=== PATIENT | male | born 1935 | race Caucasian/White ===

== ENCOUNTER 2017-10-04 00:36 | Inpatient (IN) | payer MEDICARE, MEDICAID ==
[2017-10-04 01:13] LABS: #Monocytes 0.8 thou/uL (0.11-0.59); #Neutrophils 11.2 thou/uL (1.40-6.50); %Basophils 0.2 % (0.0-1.0); %Eosinophils 0.2 % (0.0-10.0); %Lymphocytes 7.9 % (21.0-51.0); %Neutrophils 85.8 % (42.0-75.0); Hemoglobin 14.2 g/dL (14.0-18.0); Mean Corpuscular HGB CONC 33.3 g/dL (32.0-36.0); Mean Corpuscular Hemoglobin 30.6 pg (27.0-31.0); Mean Corpuscular Volume 91.7 fl (80.0-94.0); Mean Platelet Volume 6.3 fL (7.4-10.4); Platelet Count 209 thou/uL (130-400); Red Blood Cell (RBC) Count 4.65 mill/uL (4.70-6.10)
[2017-10-04 01:13] LABS: Bilirubin Negative (Negative); Blood, Urine Large (Negative); Clarity CLOUDY (Clear); Glucose, Urine (Dipstick) Negative (Negative); Leukocyte Large (Negative); Nitrite Positive (Negative); Protein, Urine (Dipstick) 100 mg/dL (Neg-Trace); Specific Gravity, Urine 1.016 (1.002-1.036); pH, Urine 7.5 (5.0-9.0)
[2017-10-04 01:15] LABS: Bacteria/HPF 4+ HPF (None Seen); Hyaline Casts/LPF 0-3 HYALINE CAST LPF (0-3 Hyaline); RBC/HPF GREATER THAN 50-TNTC HPF (0-3); Squamous Epithelial None Seen HPF (0-3)
[2017-10-04 01:26] LABS: CO2 Tension 31.7 mmHg (35.0-45.0); Hematocrit-ABG 41.8 % (42.0-52.0); pH, Arterial 7.46 (7.35-7.45)
[2017-10-04 01:27] LABS: ALV-art Gradient 63.875 (0-20); Analyzer IN Cardio ER; Puncture Site LRA
[2017-10-04 01:34] LABS: ALT (SGPT) Less than 7 U/L (8-55); AST (SGOT) 9 U/L (5-34); Albumin 3.6 g/dL (3.4-4.8); Alkaline Phosphatase 90 U/L (40-150); Anion Gap 11 mmol/L (10-20); BUN (Urea Nitrogen) 12 mg/dL (8.4-25.7); Bilirubin, Total 1.5 mg/dL (0.2-1.2); Calc. Creatinine Clearance 0 mL/min (70-130); Calcium 8.1 mg/dL (7.8-10.44); Carbon Dioxide 27 mmol/L (23-31); Chloride 101 mmol/L (98-107); Estimated GFR-MDRD 67; Glucose 104 mg/dL (83-110); Protein, Total 6.6 g/dL (5.8-8.1); Sodium 135 mmol/L (136-145)
[2017-10-04] MEDS ORDERED: Piperacillin/Tazobactam 4.5 GM in Sodium Chloride 0.9% 100 ML IVPB SCH (02:00)
[2017-10-04] MEDS ORDERED: Vancomycin HCl 1.25 GM in Sodium Chloride 0.9% 250 ML 250 ML IVPB SCH (02:00)
[2017-10-04] MEDS ORDERED: Sodium Chloride 0.9% 1,000 ML IV SCH (03:39)
[2017-10-04] MEDS ORDERED: Ondansetron ODT 4 MG TAB SL PRN (03:39)
[2017-10-04] MEDS ORDERED: Acetaminophen 325 MG TAB PO PRN (03:39)
[2017-10-04] MEDS ORDERED: Ondansetron HCl/PF 4 MG/2 ML Vial IVP PRN (03:39)
[2017-10-04 03:58] VITALS: BMI 29.3
--- NOTE | 2017-10-04 03:58 | PDOC.FPRHP ---
- History of Present Illness Chief Complaint: Shortness of breath, fever History of Present Illness: 82 year old male with past medical history of lung cancer (unspecified type) that presents with shortness of breath and fever. Per EMS report, called because patient was having difficulty breathing. He has a known lung cancer history and complete laryngectomy. Patient is unable to talk, but can answer yes or no questions appropriately. Over the past few days, he has become progressively short of breath and developed a cough. He is on oxygen 3L at home , and his O2 requirement has gone up during the course of this illness. Patient reports that he had a measured temperature at home greater than 100.4. He denies body aches, headaches, sore throat or chest pain. He denies a previous diagnosis of CHF and cannot reliably recall if he has ever been diagnosed with COPD, although he does endorse a smoking history in the past. Patient endorses right hip pain, but denies any recent trauma. He states that he has bronchitis. Sick contacts at home include with cough and congestion. Additionally, patient was seen a week ago and treated for bronchitis. He has a history of recurrent pneumonia, but states he has not been hospitalized in the last several months. Patient mostly answers to yes/no questions as he is unable to talk. ED Course: Patient given 2L NS in ED. He had a SBP measured in the 80's that responded to one liter of NS. He was given 750 mg levofloxacin in the ED as well as a duoneb treatment. - Allergies/Adverse Reactions Allergies Allergy/AdvReac Type Severity Reaction Status Date / Time No Known Allergies Allergy Verified 10/04/17 03:56 - Home Medications Medication Instructions Recorded Confirmed Type Carvedilol [Coreg] 6.25 mg PO BID 10/04/17 10/04/17 History Esomeprazole Magnesium [NexIUM] 40 mg PO QAM-WM 10/04/17 10/04/17 History Furosemide [Lasix] 40 mg PO BID 10/04/17 10/04/17 History Levothyroxine Sodium [Synthroid] 137 mcg PO DAILY 10/04/17 10/04/17 History Warfarin Sodium [Coumadin] 3 mg PO DAILY@1700 10/04/17 10/04/17 History traMADol HCl/Acetaminophen 1 each PO QID 10/04/17 10/04/17 History [Tramadol-Acetaminophn 37.5-325] Levofloxacin [Levaquin] 750 mg PO 0600 #1 tab 10/07/17 Rx Oseltamivir [Tamiflu] 75 mg PO BID #5 cap 10/07/17 Rx predniSONE 40 mg PO QAM-WM #3 tab 10/07/17 Rx - History PMHx: Hx of lung cancer (unspecified type) PSHx: Complete laryngectomy and resection of LLL of lung 1 year ago FHx: Noncontributory Social: Patient lives at home with his who has dementia. He endorses a past smoking history. No history of drug use. Unable to reliably obtain history. Patient's daughter is on her way with documentation to update PMH and medications. - Review of Systems General: reports: fever/chills. denies: weight/appetite/sleep changes ENT: denies: nasal congestion, rhinorrhea Respiratory: reports: cough, congestion, shortness of breath, exercise intolerance Cardiovascular: denies: chest pain, edema, orthopnea Gastrointestinal: denies: nausea, vomiting, diarrhea, constipation Genitourinary: reports: other (Chronic indwelling catheter). denies: dysuria Skin: denies: rashes Musculoskeletal: reports: pain (Right hip pain (arthritis)), arthritis/ arthralgias (Right hip) Neurological: denies: syncope Psychological: reports: anxiety - Vital signs BP: 123/63 HR: 104 RR: 22 Tmax: 101.8 Pox: 99% on 4L Wt: 95.5 kg - Physical Exam Constitutional: NAD, awake, alert and oriented HEENT: normocephalic and atraumatic, EOMI, no scleral icterus Neck: supple Heart: RRR, no murmurs/rubs/gallops, pulses present, no edema -Lungs: Wheezing diffusely throughout. Crackles in LLL. Decreased breath sounds on right. Abdomen: soft, non-tender, bowel sounds present, no masses/distention Musculoskeletal: normal structure Neurological: no focal deficit Skin: no rash/lesions, capillary refill <2 seconds Heme/Lymphatic: no purpura, no petechia Psychiatric: normal mood and affect FMR H&P: Results - Labs Result Diagrams: 10/07/17 04:42 10/07/17 04:42 Lab results: WBC 13.0 thou/uL (4.8-10.8) H 10/04/17 00:55 Hgb 14.2 g/dL (14.0-18.0) 10/04/17 00:55 Hct 42.7 % (42.0-52.0) 10/04/17 00:55 MCV 91.7 fl (80.0-94.0) 10/04/17 00:55 Plt Count 209 thou/uL (130-400) 10/04/17 00:55 Neutrophils % 85.8 % (42.0-75.0) H 10/04/17 00:55 ABG pH 7.46 (7.35-7.45) H 10/04/17 01:20 ABG pCO2 31.7 mmHg (35.0-45.0) L 10/04/17 01:20 ABG pO2 253.0 mmHg (80.0-100.0) H 10/04/17 01:20 Sodium 135 mmol/L (136-145) L 10/04/17 00:55 Potassium 4.0 mmol/L (3.5-5.1) 10/04/17 00:55 Chloride 101 mmol/L (98-107) 10/04/17 00:55 Carbon Dioxide 27 mmol/L (23-31) 10/04/17 00:55 BUN 12 mg/dL (8.4-25.7) 10/04/17 00:55 Creatinine 1.06 mg/dL (0.6-1.3) 10/04/17 00:55 Glucose 104 mg/dL (83-110) 10/04/17 00:55 Lactic Acid 2.1 mmol/L (0.5-2.2) 10/04/17 00:55 Calcium 8.1 mg/dL (7.8-10.44) 10/04/17 00:55 Total Bilirubin 1.5 mg/dL (0.2-1.2) H 10/04/17 00:55 AST 9 U/L (5-34) 10/04/17 00:55 ALT Less than 7 U/L (8-55) L 10/04/17 00:55 Alkaline Phosphatase 90 U/L (40-150) 10/04/17 00:55 Serum Total Protein 6.6 g/dL (5.8-8.1) 10/04/17 00:55 Albumin 3.6 g/dL (3.4-4.8) 10/04/17 00:55 Urine Ketones Negative mg/dL (Negative) 10/04/17 00:42 Urine Blood Large (Negative) H 10/04/17 00:42 Urine Nitrite Positive (Negative) H 10/04/17 00:42 Ur Leukocyte Esterase Large (Negative) H 10/04/17 00:42 Urine RBC GREATER THAN 50-TNTC HPF (0-3) H 10/04/17 00:42 Urine WBC Greater Than 50-TNTC HPF (0-3) H 10/04/17 00:42 Ur Squamous Epith Cells None Seen HPF (0-3) 10/04/17 00:42 Urine Bacteria 4+ HPF (None Seen) H 10/04/17 00:42 - Radiology Interpretation Chest x-ray Status: image reviewed by me, report reviewed by me FMR H&P: A/P - Problem List (1) Sepsis Current Visit: Yes Status: Acute Code(s): A41.9 - SEPSIS, UNSPECIFIED ORGANISM (2) Community acquired pneumonia Current Visit: Yes Status: Acute Code(s): J18.9 - PNEUMONIA, UNSPECIFIED ORGANISM (3) COPD exacerbation Current Visit: Yes Status: Acute Code(s): J44.1 - CHRONIC OBSTRUCTIVE PULMONARY DISEASE W (ACUTE) EXACERBATION (4) History of lung cancer Current Visit: Yes Status: Chronic Code(s): Z85.118 - PERSONAL HISTORY OF MALIGNANT NEOPLASM OF BRONCHUS AND LUNG (5) S/P laryngectomy Current Visit: Yes Status: Chronic (6) UTI (urinary tract infection) Current Visit: Yes Status: Acute Qualifiers: Urinary tract infection type: catheter-associated UTI Indwelling urinary catheter type: indwelling urethral catheter Encounter type: initial encounter Qualified Code(s): T83.511A - Infection and inflammatory reaction due to indwelling urethral catheter, initial encounter; N39.0 - Urinary tract infection , site not specified; N39.0 - Urinary tract infection, site not specified (7) Chronic indwelling Carmona catheter Current Visit: Yes Status: Chronic Code(s): Z92.89 - PERSONAL HISTORY OF OTHER MEDICAL TREATMENT - Plan 1. Sepsis 2/2 presumed atypical CAP vs. acute on chronic tracheobronchitis - LA elevated at 2.1, repeat pending - New onset cough, fever, and SOB - Sick contacts at home - NS @ 125 ml/hr - Continue treatment with levoquin 750 mg per 24 hours - May be able to transfer to floor later today if patient continues to be stable - Titrate O2 as tolerated. Patient normally on 3 L at home. Currently requiring 4 L - Continue steroids and duonebs - Initial CXR showed possible left lung infiltrates. Repeat recommended if not improving - Patient refusing suctioning and humidified air 2. UTI vs. asymptomatic bacteriuria/colonization - patient with chronic indwellling carmona catheter for uknown reason. Will try to get better history once patient's family arrives - May need catheter replacement; unsure how long catheter has been in place 3. History of lung cancer - Records pending at this time. Will have better idea of PMH and surgical history once patient's family arrives. 4. S/p laryngectomy - RT for assistance with trach care - Patient currently with stoma Disposition/LOS: Admit to IMCU. Continue treatment with levoquin for CAP, possible UTI, and COPD exacerbation. FMR H&P: Upper Level - Plan Date/Time: 10/04/17351 IEddie, have evaluated this patient and agree with findings/plan as outlined by strategy intern resident. Pertinent changes/additions are listed here. 82 y/o M pmhx lung Ca s/p lung resection and complete laryngectomy presents to via EMS w/ progressively worsening dyspnea and fever x several days. Unfortunately, the patient is unable to talk, but can answer yes or no questions appropriately. Pt on 3L O2 at baseline with increasing O2 requirement over the past day or two. No associated body aches, headaches, sore throat, chest pain, or congestion. Denies any new urinary symptoms; does have a chronic indwelling catheter for issues with retention. Pt is a prior smoker but is unsure whether or not he carries a diagnosis of COPD. Apparently, patient was seen a week ago and treated for bronchitis but it is unclear with what medication. He has a history of recurrent pneumonia but has not been hospitalized in the last several months. The patient has never been seen before at this facility and indicates that he usually goes to different hospital that recently shut down. His family members are supposed to be bringing a full list of his medical problems and medications later this morning. PE: Gen: AAOx3, NAD ENT: Trachestomy tube present O2 mask in place CV: RRR, no m/g/r Lungs: diffuse wheezing; adventitious breath sounds LLL A/P: 1) Sepsis 2/2 #2, resolving: Pt initially admitted to IMCU due to initial VS instability in the context of his age and comorbidties. Lactic acid increasing slightly - cont IVF and abx and recheck in 4hrs. Initial ABG ok. Blood and urine cultures pending. Clinical condition currently stable after fluid boluses. May be able to transfer to floor later today. 2) Acute on chronic tracheobronchitis v. LLL CAP: continue Levaquin. Titrate O2 as required. Continue steroids and neb treatments. Initial CXR poor quality, obtain r/p if not improving as expected. 3) UTI v. asymptomatic bacteriuria/colonization: Urine less likely source of infection but levaquin should cover while culture pending. May need catheter replacement. 4) H/o lung CA: records pending 5) S/p laryngectomy: RT for assistance with trach care Attending Addendum - Attending Addendum Date/Time: 10/07/17 1015 I personally evaluated the patient and discussed the management with Dr. Rousseau and Dr. Quinn at time of exam. Previous addendum added but no longer present within documentation. I agree with the History, Examination, Assessment and Plan documented above with any addition or exceptions noted below. 82 yo male with history of lung cancer s/p surg/treatment presents with sepsis 2 /2 pulmonary source. Stable in IMCU at present. Continue plan as stated above. Monitor closely. Trend labs. Discuss case with urology. Flu negative. Lori
[2017-10-04] MEDS ORDERED: Enoxaparin Sodium 40 MG/0.4 ML SYRINGE SC SCH (04:00)
[2017-10-04] MEDS ORDERED: Albuterol Sulfate 1.25 MG/3 ML NEB IPPB PRN (05:00)
[2017-10-04] MEDS: Sodium Chloride 0.9% 1,000 ML IV SCH ×3 (05:26→21:24)
[2017-10-04 05:37] LABS: Lactic Acid 2.4 mmol/L (0.5-2.2)
[2017-10-04 05:54] LABS: CKMB 0.9 ng/mL (0-6.6); Troponin I Less than 0.010 ng/mL (< 0.028)
--- NOTE | 2017-10-04 07:43 | RAD ---
SINGLE VIEW CHEST: Date: 10/04/17 COMPARISON: None. HISTORY: Shortness of breath with fever and chest pain. FINDINGS: Single view of the chest shows a cardiomediastinal silhouette which is upper limits of normal in size with atherosclerotic calcifications in the aorta. There is no evidence of consolidation, mass, or pl eural effusion. Degenerative changes are seen in the spine. IMPRESSION: No evidence of acute cardiopulmonary disease. POS: OFF
[2017-10-04] MEDS: predniSONE 20 MG TAB PO SCH (09:22)
[2017-10-04 09:41] LABS: INR-International Normal Ratio 1.9; PTT 55.9 SEC (22.9-36.1); Prothrombin Time 22.8 SEC (12.0-14.7)
--- NOTE | 2017-10-04 12:28 | PQF ---
CLINICAL DOCUMENTATION IMPROVEMENT CLARIFICATION FORM: ICD-10 Updated PLEASE DO AN ADDENDUM TO THE PROGRESS NOTE WITH ANY DOCUMENTATION UPDATES OR ADDITIONS AND CARRY THROUGH TO DC SUMMARY. THANK YOU. DATE: 10/04/17 ATTN: DR. RAMIREZ Please exercise your independent, professional judgment in responding to the clarification form. Clinical indicators are provided on the bottom of this form for your review Please check appropriate box(s): [ ] Acute Respiratory Failure: [ ] with Hypoxia[ ] with Hypercapnia [ x] Acute On Chronic Respiratory Failure: [x ] with Hypoxia [ ] with Hypercapnia [ ] Acute Respiratory Failure due to: (etiology) [ ] Acute Respiratory Insufficiency following (if applicable): [ ] trauma [ ] surgery [ ] Chronic Respiratory Failure only [ ] with Hypoxia [ ] with Hypercapnia [ ] Other diagnosis [ ] Unable to determine In addition, please specify: Present on Admission (POA): [ x ] Yes [ ] No [ ] Unable to determine For continuity of documentation, please document condition throughout progress notes and discharge summary. Thank You. CLINICAL INDICATORS - SIGNS / SYMPTOMS / LABS H&P 10/04: "HE IS ON OXYGEN 3L AT HOME, AND HIS O2 REQUIREMENT HAS GONE UP DURING THE COURSE OF THIS ILLNESS." RR 32 RISKS: COPD H/O LUNG AND VOCAL CORD CA PNEUMONIA TRACH TREATMENT: SUPPLEMENTAL OXYGEN PULMONARY CONSULT DUONEBS PREDNISONE (This form is maintained as a part of the permanent medical record) 2014 [employer]. All Rights Reserved [email or web address] Office: [phone] [facility]PITAL[facility]oon
--- NOTE | 2017-10-04 13:45 | CON ---
DATE OF CONSULTATION: 10/04/2017 CONSULTING PHYSICIAN: [facility]. REASON FOR CONSULTATION: IMCU placement. HISTORY OF THE PRESENT ILLNESS: History is obtained by reading the chart and also speaking with the patient's family. The patient is unable to talk secondary to laryngectomy. He is an 82-year-old male who has a history of lung cancer and head and neck cancer. He recently und erwent partial left lung resection along with a complete laryngectomy. He ordinarily does well at [facility], but does have to wear supplemental oxygen. He came in last night with increasing fever and weakn ess. He lives in [place] and ordinarily has received care at [facility]. Apparently, the hospital over in [place] has closed recently and we may be the closest facility to them. He was found on wo rkup to have a fairly significant urinary tract infection and is receiving antibiotics and is doing m uch better. He has not required anything in the way of mechanical ventilation. PAST MEDICAL HISTORY: 1. Lung cancer. 2. Head and neck cancer. 3. Probable underlying chronic obstructive pulmonary disease. PAST SURGICAL HISTORY: 1. Partial left lung resection - I do not have operative notes to substantiate what exactly was karissa kayode. 2. Complete laryngectomy. FAMILY MEDICAL HISTORY: Unremarkable for lung disease. SOCIAL HISTORY: Smoked heavily in the past. He does not smoke currently. Lives at home with his wi fe in [place]. Does not use illicit drugs. Does not drink alcohol. MEDICATIONS PRIOR TO ADMISSION: None listed on the chart. CURRENT INPATIENT MEDICATIONS: Levaquin, prednisone and DuoNeb. OUTPATIENT MEDICATIONS: They are listed as follows. Esomeprazole 40 mg daily; Lasix 40 mg twice shirley ly; warfarin 3 mg every Saturday, Saturday and Saturday and a half of 3 mg tablet on Saturday, Saturday a saturday; Coreg 6.25 mg b.i.d.; Synthroid 137 mcg daily; tramadol 4 times daily for pain and he had been taking doxycycline 100 mg b.i.d. for unknown time. REVIEW OF SYSTEMS: A 12-point review of systems otherwise negative. PHYSICAL EXAMINATION: VITAL SIGNS: Temperature 99.4, pulse 111, respirations 22 and O2 sat 100% on trach collar. GENERAL: He is awake and alert and in no distress. He is not hypotensive and is not requiring vasop ressors. HEENT: Pupils react. Sclerae anicteric. Oropharynx clear. NECK: A well healed laryngectomy scar. The patient cannot talk. CARDIOVASCULAR: S1 and S2, slightly tachycardic without murmur. LUNGS: Clear without wheezing or rhonchi. ABDOMEN: Soft, nontender and nondistended. EXTREMITIES: No clubbing or cyanosis. He has some stasis changes over his lower extremities. X-RAY FINDINGS: His chest x-ray demonstrates increased markings over the left lung. We do not have any old x-ray to compare. LABORATORY DATA: PH 7.46, pCO2 of 31 and pO2 of 253. White blood cell count 13, hematocrit 42 and p latelet count 209. INR 1.9. Sodium 135, potassium 4, chloride 101, CO2 of 27, BUN 12, creatinine 1. 0, glucose 104 and lactate 2.4. BNP 125. ASSESSMENT: 1. Urinary tract infection/urosepsis. 2. Previous history of lung cancer and head and neck cancer. 3. Status post laryngectomy. PLAN: I agree with antibiotics, fluids needed. The above encompassed 70 minutes time spent with the patient. Greater than 50% of the time was spent with the patient and/or on the patient's unit.
--- NOTE | 2017-10-04 14:20 | CON ---
DATE OF CONSULTATION: 10/04/2017 This patient was admitted last night through the emergency room here. I think he came here recently and probably was transferred here from [place], I believe he is in [place] and he has been g etting his care over in [place] with Dr. Mclaughlin is his family doctor there. He came in with worsenin g shortness of breath. He felt to have pneumonia. He has had laryngectomy, he has also had a lobect noel, both for cancer. I do not think there is any of those records here, who did those surgeries has been caring form in that regard. I have been asked to see him because his bladder has been maintain ed with an indwelling catheter, his believes for 8 years, exchange [facility]. He is probably not seen an urologist for a number of years. He has had some erosion that was noted by the nursing staff from the [facility]. I talked with the , she does not believe he has h ad any history of prostate surgery, prostate cancer, kidney stones, or bladder stones. His white cou nt is elevated at 13. His creatinine is normal at 1.06. Urine which I believe was taken from the in dwelling catheter bag showed many red cells, white cells and 4+ bacteria. I believed his catheter wa s last changed just a few days ago by home health. He has had tests for the flu that come back negat ben, I believe he has had blood and urine cultures were done, but they are still pending on the compu ter. He is still tachycardic with a temperature of around 99 with slight blood pressure has been fin e, appears that he has had good urine output looking at his bag. PHYSICAL EXAMINATION: His abdomen is soft and nontender, without mass. Bladder is not distended. P millie is not circumcised. There is no phimosis. Foreskin easily retracts. He has got some erosion o f the ventral meatus down past the glans and the julian and just to the distal shaft of the ventral a spect. There is no perineal mass or fluctuance or tenderness. Testicles are descended without mass or tenderness. Rectal exam was not done. IMPRESSION: Long-term Kay catheter placement changed monthly by home health nurses and is uncertai n why this was placed, although it is probably placed because he could not urinate, but there is no w ay to know why was he could not urinate. He got some erosion from this. If he clears up from his cu rrent medical condition and his health improves, we could consider changing over to a suprapubic tube . I do not know who Dr. Mclaughlin is, that is his regular family doctor in [place] and I do not know if Dr. Mclaughlin uses a urologist there. Apparently the patient has seen a urologist a number of years ago and his option is to return to that urologist, the suprapubic tube could be placed by him, however, that is not possible and the family was desiring that, we could look at doing a suprapubic tube in 2- 3 weeks once he has recovered from this event. I will follow along distantly while he is here and we will check his cultures as they return.
[2017-10-04] MEDS ORDERED: Warfarin Sodium 3 MG TAB PO SCH (17:00)
[2017-10-04] MEDS: Carvedilol 6.25 MG TAB PO SCH (17:52)
[2017-10-04] MEDS ORDERED: Carvedilol 6.25 MG TAB PO SCH (21:00)
[2017-10-04] MEDS: Diabetic Tussin 200 MG/10 ML UDCUP PO PRN (21:23)
[2017-10-05] MEDS: traMADol HCl 50 MG TAB PO PRN ×4 (02:31→18:34)
[2017-10-05 04:18] LABS: #Monocytes 0.9 thou/uL (0.11-0.59); #Neutrophils 11.7 thou/uL (1.40-6.50); %Basophils 0.3 % (0.0-1.0); %Eosinophils 0.1 % (0.0-10.0); %Lymphocytes 7.4 % (21.0-51.0); %Monocytes 6.4 % (0.0-10.0); %Neutrophils 85.8 % (42.0-75.0); Hemoglobin 14.5 g/dL (14.0-18.0); Mean Corpuscular HGB CONC 33.5 g/dL (32.0-36.0); Mean Corpuscular Hemoglobin 30.7 pg (27.0-31.0); Mean Corpuscular Volume 91.5 fl (80.0-94.0); Mean Platelet Volume 7.5 fL (7.4-10.4); Platelet Count 132 thou/uL (130-400); RBC Distribution Width 12.9 % (11.5-14.5); Red Blood Cell (RBC) Count 4.75 mill/uL (4.70-6.10); White Blood Cell (WBC) Count 13.7 thou/uL (4.8-10.8)
[2017-10-05 04:25] LABS: INR-International Normal Ratio 1.8; Prothrombin Time 21.4 SEC (12.0-14.7)
[2017-10-05 04:35] LABS: Anion Gap 13 mmol/L (10-20); BUN (Urea Nitrogen) 14 mg/dL (8.4-25.7); Calc. Creatinine Clearance 94 mL/min (70-130); Calcium 8.6 mg/dL (7.8-10.44); Carbon Dioxide 19 mmol/L (23-31); Chloride 108 mmol/L (98-107); Estimated GFR-MDRD 90; Glucose 78 mg/dL (83-110); Potassium 3.7 mmol/L (3.5-5.1); Sodium 136 mmol/L (136-145)
[2017-10-05] MEDS ORDERED: Levothyroxine Sodium 112 MCG TAB PO SCH (06:00)
[2017-10-05] MEDS ORDERED: Levothyroxine Sodium 25 MCG TAB PO SCH (06:00)
[2017-10-05] MEDS ORDERED: Furosemide 40 MG TAB PO SCH (06:00)
[2017-10-05] MEDS: Levothyroxine Sodium 25 MCG TAB PO SCH (06:06)
[2017-10-05] MEDS: Levothyroxine Sodium 112 MCG TAB PO SCH (06:06)
[2017-10-05] MEDS: Sodium Chloride 0.9% 1,000 ML IV SCH (06:07)
--- NOTE | 2017-10-05 07:46 | PDOC.FM ---
- Subjective Subjective: HD # 2, IMELDA overnight. VSS. Afebrile. Pt complaining of discomfort from his carmona this AM. - Objective MAR Reviewed: Yes Vital Signs & Weight: Vital Signs (12 hours) Temp Pulse Resp BP Pulse Ox 10/05/17 07:16 99.4 F 103 H 22 H 136/74 100 10/05/17 06:00 99 10/05/17 05:49 103 H 18 100 10/05/17 04:26 99.8 F H 100 16 143/79 H 100 10/05/17 02:26 105 H 20 98 10/04/17 23:31 99.4 F 94 28 H 151/77 H 100 10/04/17 22:26 93 19 99 10/04/17 20:27 99.6 F 96 24 H 100 Weight Weight 95.51 kg I&O: 10/04/17 10/05/17 10/06/17 06:59 06:59 06:59 Intake Total 240 3302 Output Total 400 1625 Balance -160 1677 Result Diagrams: 10/05/17 03:51 10/05/17 03:51 <Erwin Fagan - Last Filed: 10/05/17 07:43> - Objective Vital Signs & Weight: Vital Signs (12 hours) Temp Pulse Resp BP BP Pulse Ox 10/05/17 09:25 96 20 100 10/05/17 08:45 147/86 H 10/05/17 07:16 99.4 F 103 H 22 H 136/74 100 10/05/17 06:00 99 10/05/17 05:49 103 H 18 100 10/05/17 04:26 99.8 F H 100 16 143/79 H 100 10/05/17 02:26 105 H 20 98 10/04/17 23:31 99.4 F 94 28 H 151/77 H 100 Weight Weight 95.51 kg I&O: 10/04/17 10/05/17 10/06/17 06:59 06:59 06:59 Intake Total 240 3302 Output Total 400 1625 Balance -160 1677 Result Diagrams: 10/05/17 03:51 10/05/17 03:51 <Angela Kaur - Last Filed: 10/05/17 11:16> Phys Exam - Physical Examination Constitutional: NAD HEENT: moist MMs Trach stoma on trach collar Respiratory: clear to auscultation bilateral Cardiovascular: RRR, no significant murmur Gastrointestinal: soft, non-tender Neurological: moves all 4 limbs Psychiatric: normal affect Deviation from normal: Unable to speak 2/2 trach stoma <Erwin Fagan - Last Filed: 10/05/17 07:43> Dx/Plan (1) Sepsis Code(s): A41.9 - SEPSIS, UNSPECIFIED ORGANISM Status: Acute Plan: Likely 2/2 UTI from chronic indwelling carmona Cx results pending at this time Stable WBC on steroids for intial presumed COPD exacerbation and afebrile Cont. w/ levaquin IV w/ transition to PO once sensitivities return Good UOP @ 0.7 mL/Kg/Hr LA down to 1.9 from 2.4 Pt developing non-anion gap metabolic acidosis likely 2/2 NS administration Transition to 1/2 NS @ 125 mL/Hr (2) UTI (urinary tract infection) Status: Acute Plan: Cultures pending Seen by Dr. Mcdaniels of urology yesterday w/ plans for suprapubic cath in 2-3 weeks once current sxs resolve Cont. w/ IV levaquin (3) Chronic indwelling Carmona catheter Code(s): Z92.89 - PERSONAL HISTORY OF OTHER MEDICAL TREATMENT Status: Chronic Plan: Seen by urology w/ plans for suprapubic cath in 2-3 weeks Pt w/ urethral erosion Consult wound care for further management <Erwin Fagan - Last Filed: 10/05/17 07:43> Attending Addendum - Attending Addendum Date/Time: 10/05/17 1115 I personally evaluated the patient and discussed the management with Dr. Fagan. I agree with the History, Examination, Assessment and Plan documented above with any addition or exceptions noted below. Add diagnosis of inflenza A. Pt treating with tamiflu. Overall patient is improving. May be able to transfer out of the [facility] today. Continue antibiotics for UTI. Will get suprapubic catheter in 2-3 weeks. <Angela Kaur - Last Filed: 10/05/17 11:16>
[2017-10-05] MEDS: Carvedilol 6.25 MG TAB PO SCH ×2 (08:45→16:10)
[2017-10-05] MEDS: predniSONE 20 MG TAB PO SCH (08:45)
[2017-10-05] MEDS: Sodium Chloride 0.45% 1,000 ML IV SCH ×2 (08:46→16:15)
[2017-10-05] MEDS ORDERED: Prevnar 13-Val Conj/PF 0.5 ML SYRINGE IM ONE (09:00)
[2017-10-05] MEDS ORDERED: Enoxaparin Sodium 40 MG/0.4 ML SYRINGE SC SCH (09:00)
[2017-10-05] MEDS ORDERED: FLU VACC TS2017-18 (>65YR) 0.5 ML SYRINGE IM ONE (09:00)
--- NOTE | 2017-10-05 11:14 | PRG ---
DATE OF SERVICE: 10/05/2017 SUBJECTIVE: He is up in a chair, feels much better. OBJECTIVE: VITAL SIGNS: Temperature 99.4 with T-max of 99.8, pulse 96, blood pressure 147/86, O2 sat 100%, on t vernon collar and respiratory rate 20. HEENT: Unremarkable. NECK: No JVD. CHEST: Fairly clear anteriorly. Laryngectomy site looks good. CARDIAC: S1 and S2 regular. ABDOMEN: Soft. EXTREMITIES: Suprapubic catheter seems to be functioning well. ASSESSMENT: 1. Sepsis syndrome, which appears to be improving. 2. Non-anion gap metabolic acidosis. RECOMMENDATION: Needs to be transferred to the medical floor. Follow up culture results and conside r consolidating antibiotics based on the final culture results.
[2017-10-05] MEDS: Warfarin Sodium 1.5 MG TAB PO SCH (16:11)
[2017-10-05] MEDS ORDERED: Warfarin Sodium 3 MG TAB PO SCH (17:00)
[2017-10-05] MEDS: Oseltamivir 75 MG CAP PO SCH (21:39)
[2017-10-06] MEDS: Sodium Chloride 0.45% 1,000 ML IV SCH (00:45)
[2017-10-06 05:24] LABS: Prothrombin Time 23.6 SEC (12.0-14.7)
[2017-10-06] MEDS: Levothyroxine Sodium 112 MCG TAB PO SCH (06:21)
[2017-10-06] MEDS: Levothyroxine Sodium 25 MCG TAB PO SCH (06:22)
[2017-10-06] MEDS: traMADol HCl 50 MG TAB PO PRN ×2 (06:27→17:21)
[2017-10-06 06:52] LABS: #Lymphocytes 1.1 thou/uL (1.20-3.40); #Monocytes 0.5 thou/uL (0.11-0.59); #Neutrophils 8.3 thou/uL (1.40-6.50); %Basophils 0.1 % (0.0-1.0); %Eosinophils 0.1 % (0.0-10.0); %Lymphocytes 11.2 % (21.0-51.0); %Monocytes 5.3 % (0.0-10.0); %Neutrophils 83.3 % (42.0-75.0); Hemoglobin 12.3 g/dL (14.0-18.0); Mean Corpuscular HGB CONC 33.5 g/dL (32.0-36.0); Mean Corpuscular Hemoglobin 30.9 pg (27.0-31.0); Mean Corpuscular Volume 92.2 fl (80.0-94.0); Mean Platelet Volume 6.8 fL (7.4-10.4); Platelet Count 174 thou/uL (130-400); RBC Distribution Width 12.8 % (11.5-14.5); Red Blood Cell (RBC) Count 3.98 mill/uL (4.70-6.10)
[2017-10-06 07:01] LABS: Anion Gap 12 mmol/L (10-20); BUN (Urea Nitrogen) 18 mg/dL (8.4-25.7); Calc. Creatinine Clearance 93 mL/min (70-130); Calcium 8.1 mg/dL (7.8-10.44); Carbon Dioxide 23 mmol/L (23-31); Chloride 106 mmol/L (98-107); Estimated GFR-MDRD 89; Glucose 84 mg/dL (83-110); Potassium 3.7 mmol/L (3.5-5.1); Sodium 137 mmol/L (136-145)
--- NOTE | 2017-10-06 07:45 | PDOC.FM ---
- Subjective Subjective: IMELDA overnight, VSS, tolerating PO. No new complaints. Ambulated w/ walker via PT. - Objective MAR Reviewed: Yes Vital Signs & Weight: Vital Signs (12 hours) Temp Pulse Resp BP Pulse Ox 10/06/17 06:23 91 22 H 98 10/06/17 02:28 89 22 H 99 10/05/17 22:36 86 24 H 98 10/05/17 20:00 97.9 F 93 20 129/76 99 Weight Weight 95.51 kg I&O: 10/05/17 10/06/17 10/07/17 06:59 06:59 06:59 Intake Total 3302 2550 Output Total 1625 1400 Balance 1677 1150 Result Diagrams: 10/06/17 04:35 10/06/17 04:35 <Erwin Fgaan - Last Filed: 10/06/17 07:43> - Objective Vital Signs & Weight: Vital Signs (12 hours) Temp Pulse Resp BP BP Pulse Ox 10/06/17 13:30 85 20 97 10/06/17 11:19 97.4 F L 87 20 103/64 96 10/06/17 09:49 77 20 98 10/06/17 09:44 145/80 H 10/06/17 08:00 97.9 F 77 16 100 10/06/17 07:56 175/72 H 10/06/17 07:54 97.9 F 77 16 175/72 H 100 10/06/17 06:23 91 22 H 98 10/06/17 02:28 89 22 H 99 Weight Weight 95.51 kg I&O: 10/05/17 10/06/17 10/07/17 06:59 06:59 06:59 Intake Total 3302 2550 Output Total 1625 1400 Balance 1677 1150 Result Diagrams: 10/06/17 04:35 10/06/17 04:35 <Angela Kaur - Last Filed: 10/06/17 14:11> Phys Exam - Physical Examination Constitutional: NAD HEENT: PERRLA, moist MMs stoma anterior neck on trach collar Respiratory: no wheezing Cardiovascular: RRR, no significant murmur Gastrointestinal: soft, non-tender Neurological: moves all 4 limbs Psychiatric: normal affect Deviation from normal: unable to speak 2/2 stoma but answers yes/no questions appropriately <Erwin Fagan Last Filed: 10/06/17 07:43> Dx/Plan (1) Sepsis Code(s): A41.9 - SEPSIS, UNSPECIFIED ORGANISM Status: Acute Plan: Likely 2/2 UTI from chronic indwelling carmona Cx results pending at this time Decreasing WBC on steroids for intial presumed COPD exacerbation and afebrile Cont. w/ levaquin IV w/ transition to PO 2/2 klebsiella sensitive per [facility]'s D/c IVF Home w/ HH per PT rec's (2) UTI (urinary tract infection) Status: Acute Plan: Cultures pending Seen by Dr. Mcdaniels of urology yesterday w/ plans for suprapubic cath in 2-3 weeks once current sxs resolve Cont. w/ IV levaquin (3) Chronic indwelling Carmona catheter Code(s): Z92.89 - PERSONAL HISTORY OF OTHER MEDICAL TREATMENT Status: Chronic Plan: Seen by urology w/ plans for suprapubic cath in 2-3 weeks Pt w/ urethral erosion Consult wound care for further management (4) Bronchitis Code(s): J40 - BRONCHITIS, NOT SPECIFIED ACUTE OR CHRONIC Status: Acute Plan: Pt initially w/ wheezing and increased O2 requirement on trach collar Flu A positive on viral panel Likely bronchitis w/ negative CXR and improvement on steroids Cont. w/ 5 days PO steroids Cont. tamiflu <Erwin Fagan - Last Filed: 10/06/17 07:43> Attending Addendum - Attending Addendum Date/Time: 10/06/17 1410 I personally evaluated the patient and discussed the management with Dr. Fagan. I agree with the History, Examination, Assessment and Plan documented above with any addition or exceptions noted below. The patient is continuing to improve though he had some wheezing this morning. Will continue supportive care and anticipate discharge tomorrow. <Angela Kaur - Last Filed: 10/06/17 14:11>
[2017-10-06] MEDS: predniSONE 20 MG TAB PO SCH (07:55)
[2017-10-06] MEDS: Carvedilol 6.25 MG TAB PO SCH ×2 (07:56→17:21)
[2017-10-06] MEDS: Oseltamivir 75 MG CAP PO SCH ×2 (07:56→22:01)
[2017-10-06] MEDS: Diabetic Tussin 200 MG/10 ML UDCUP PO PRN (09:52)
[2017-10-06] MEDS: Warfarin Sodium 1.5 MG TAB PO SCH (17:20)
[2017-10-07 05:28] LABS: #Lymphocytes 1.5 thou/uL (1.20-3.40); #Monocytes 0.7 thou/uL (0.11-0.59); #Neutrophils 7.8 thou/uL (1.40-6.50); %Basophils 0.3 % (0.0-1.0); %Eosinophils 0.2 % (0.0-10.0); %Lymphocytes 14.9 % (21.0-51.0); %Monocytes 6.6 % (0.0-10.0); %Neutrophils 78.1 % (42.0-75.0); Hemoglobin 13.6 g/dL (14.0-18.0); Mean Corpuscular HGB CONC 33.1 g/dL (32.0-36.0); Mean Corpuscular Hemoglobin 30.6 pg (27.0-31.0); Mean Corpuscular Volume 92.5 fl (80.0-94.0); Mean Platelet Volume 6.4 fL (7.4-10.4); Platelet Count 242 thou/uL (130-400); RBC Distribution Width 12.8 % (11.5-14.5); Red Blood Cell (RBC) Count 4.44 mill/uL (4.70-6.10); White Blood Cell (WBC) Count 9.9 thou/uL (4.8-10.8)
[2017-10-07 05:32] LABS: Anion Gap 12 mmol/L (10-20); BUN (Urea Nitrogen) 20 mg/dL (8.4-25.7); Calc. Creatinine Clearance 81 mL/min (70-130); Calcium 8.4 mg/dL (7.8-10.44); Carbon Dioxide 25 mmol/L (23-31); Chloride 105 mmol/L (98-107); Estimated GFR-MDRD 76; Glucose 78 mg/dL (83-110); Potassium 3.7 mmol/L (3.5-5.1); Sodium 138 mmol/L (136-145)
[2017-10-07 05:35] LABS: INR-International Normal Ratio 2.2
[2017-10-07] MEDS: Levothyroxine Sodium 25 MCG TAB PO SCH (06:03)
[2017-10-07] MEDS: Levothyroxine Sodium 112 MCG TAB PO SCH (06:03)
[2017-10-07] MEDS: predniSONE 20 MG TAB PO SCH (08:28)
[2017-10-07] MEDS: Carvedilol 6.25 MG TAB PO SCH (08:28)
[2017-10-07] MEDS: Oseltamivir 75 MG CAP PO SCH (08:28)
--- NOTE | 2017-10-07 09:23 | PDOC.FM ---
- Subjective Subjective: Pt seen at bedside in NAD. IMELDA overnight, states he feels well and is ready to go home. Pt denies CP, SOB, NVD, abd pain. - Objective MAR Reviewed: Yes Vital Signs & Weight: Vital Signs (12 hours) Temp Pulse Resp BP BP Pulse Ox 10/07/17 08:40 98.0 F 84 20 156/83 H 100 10/07/17 08:28 156/83 H 10/07/17 07:03 84 22 H 98 10/07/17 02:44 98 10/06/17 23:13 98 Weight Weight 95.51 kg I&O: 10/06/17 10/07/17 10/08/17 06:59 06:59 06:59 Intake Total 2550 1220 Output Total 1400 550 Balance 1150 670 Result Diagrams: 10/07/17 04:42 10/07/17 04:42 <Carlos Eduardo Hernadez - Last Filed: 10/07/17 09:21> - Objective Vital Signs & Weight: Vital Signs (12 hours) Temp Pulse Resp BP BP Pulse Ox 10/07/17 08:40 98.0 F 84 20 156/83 H 100 10/07/17 08:28 156/83 H 10/07/17 07:03 84 22 H 98 10/07/17 02:44 98 10/06/17 23:13 98 Weight Weight 95.51 kg I&O: 10/06/17 10/07/17 10/08/17 06:59 06:59 06:59 Intake Total 2550 1220 180 Output Total 1400 550 Balance 1150 670 180 Result Diagrams: 10/07/17 04:42 10/07/17 04:42 <Magda Martinez - Last Filed: 10/07/17 10:42> Phys Exam - Physical Examination Constitutional: NAD HEENT: PERRLA stoma anterior neck, site c/d/i Respiratory: no wheezing Cardiovascular: RRR, no significant murmur Gastrointestinal: soft, non-tender Neurological: moves all 4 limbs Psychiatric: normal affect Skin: cap refill <2 seconds <Carlos Eduardo Hernadez - Last Filed: 10/07/17 09:21> Dx/Plan (1) UTI (urinary tract infection) Status: Acute QualifierTitle: Urinary tract infection type: catheter-associated UTI Indwelling urinary catheter type: indwelling urethral catheter Encounter type : initial encounter Qualified Code(s): T83.511A - Infection and inflammatory reaction due to indwelling urethral catheter, initial encounter; N39.0 - Urinary tract infection, site not specified; N39.0 - Urinary tract infection, site not specified Plan: -pansensitive Klebsiella UTI -plans per urology for suprapubic cath in 2-3 weeks in outpatient clinic -transition to oral levaquin to complete course (2) Bronchitis Code(s): J40 - BRONCHITIS, NOT SPECIFIED ACUTE OR CHRONIC Status: Acute Plan: -continue with tamiflu due to exposure and symptoms -continue 5 day course of steroids -pt has nebulizer at home, continue -pt at baseline oxygen requirement and was stable on RA during exam today (3) Chronic indwelling Kay catheter Code(s): Z92.89 - PERSONAL HISTORY OF OTHER MEDICAL TREATMENT Status: Chronic (4) History of lung cancer Code(s): Z85.118 - PERSONAL HISTORY OF MALIGNANT NEOPLASM OF BRONCHUS AND LUNG Status: Chronic (5) S/P laryngectomy Status: Chronic - Plan Plan: Disposition: Pt doing well and stable for discharge today. Transition to all oral medications. Follow up outpatient for suprapubic catheter in 2-3 weeks. <Carlos Eduardo Hernadez - Last Filed: 10/07/17 09:21> Attending Addendum - Attending Addendum Date/Time: 10/07/17 1041 I personally evaluated the patient and discussed the management with Dr. Hernadez I agree with the History, Examination, Assessment and Plan documented above with any addition or exceptions noted below. Lungs: occ wheezing. Good air movement and normal respiratory effort. Flu A- complete tamiflu Bronchitis- steroids, nebs. stable on trach collar. UTI- complete Levaquin course. Patient ready for d/c. <Magda Martinez - Last Filed: 10/07/17 10:42>
[2017-10-07 12:10] VITALS: BP 151/75; TEMP 98.2
--- NOTE | 2017-10-08 07:16 | DIS-2 ---
DATE OF ADMISSION: 10/04/2017 DATE OF DISCHARGE: 10/07/2017 ADMITTING ATTENDING: Anna Lopez M.D. DISCHARGE ATTENDING: Magda Martinez M.D. RESIDENT: Erwin Fagan M.D. CONSULTATION: 1. Critical Care, Dr. Dumont. 2. Urology, Dr. Mcdaniels. PROCEDURES: None. PRIMARY DIAGNOSES: 1. Acute on chronic hypoxic respiratory failure. 2. Influenza A. 3. Tracheobronchitis. 4. Klebsiella, complicated urinary tract infection. 5. 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 SECONDARY DIAGNOSES: 1. History of laryngeal cancer. 2. History of lung cancer. DISCHARGE MEDICATIONS: 1. Levaquin 750 mg p.o. q. day. 2. Tamiflu 75 mg p.o. b.i.d. 3. Prednisone 40 mg p.o. q.8 hours with breakfast. 4. Levothyroxine 137 mcg p.o. q. day. 5. Coreg 6.25 mg p.o. b.i.d. 6. Warfarin 3 mg p.o. daily on Saturday, Saturday and Saturday. 7. Warfarin 1.5 mg p.o. daily on Saturday, , Saturday, and Saturday. 8. Lasix 40 mg p.o. b.i.d. 9. Nexium 40 mg p.o. q.a.m. with meal. 10. Tramadol/acetaminophen 1 tab p.o. q.4 hours daily as needed. DISCONTINUED MEDICATIONS: None. HISTORY OF PRESENT ILLNESS: The patient is an 82-year-old male with past medical history of lung cancer and laryngeal cancer status post lobectomy and laryngectomy with trach stoma on 3 liters trach collar at home who presented to the ER for evaluation of shortness of breath and cough over the preceding 2 days. The patient had increased O2 requirement at home above his 3 liter baseline. Also with home temperature of 100.4 degrees Fahrenheit. Chest x-ray obtained in the ER negative and initial flu swab negative. Viral panel subsequently obtained showing patient to be flu A positive. The patient was also found to have tachycardia and elevated white blood cell count in the setting of a Klebsiella urinary tract infection meeting sepsis criteria. He was started on Levaquin to treat both the UTI as well as any possible pulmonary infection. Urine cultures and urethral wound culture growing out Klebsiella sensitive to fluoroquinolones. The patient's white count did improve from 13.0 down to 9.9 on day of discharge. The patient remained afebrile throughout entire hospital course and stable back on his usual home oxygen requirement. The patient was seen by Urology, Dr. Mcdaniels, with plans to place a suprapubic catheter in 2 to 3 weeks secondary to chronic indwelling Kay with urethral erosion. [facility]
== END 2017-10-07 15:15 | disposition home or self-care (01) | DRG 698 ==
LOC: EDBD 00:36 → ERS 00:36 → IMCU/EMU 02:00 → T4-A 10-05 15:03
PROVIDERS: ADMIT Student in an Organized Health Care Education/Training Program; ATTEND Student in an Organized Health Care Education/Training Program
DX: T83.511A Infection and inflammatory reaction due to indwelling urethral catheter, initial encounter (principal); J96.21 Acute and chronic respiratory failure with hypoxia; A41.9 Sepsis, unspecified organism; Z93.0 Tracheostomy status; E87.2 Acidosis; N39.0 Urinary tract infection, site not specified; Y73.1 Therapeutic (nonsurgical) and rehabilitative gastroenterology and urology devices associated with adverse incidents; B96.1 Klebsiella pneumoniae [K. pneumoniae] as the cause of diseases classified elsewhere; J10.1 Influenza due to other identified influenza virus with other respiratory manifestations; J20.8 Acute bronchitis due to other specified organisms; Z85.118 Personal history of other malignant neoplasm of bronchus and lung; Z85.21 Personal history of malignant neoplasm of larynx; Z99.81 Dependence on supplemental oxygen; Z87.891 Personal history of nicotine dependence
CPT/HCPCS: 36415; 71045; 80048; 80053; 81003; 81015; 82553; 82805; 83605; 83880; 84484; 85025; 85610; 85730; 87040; 87070; 87077; 87086; 87186; 87205; 87633; 90471; 90670; 90682; 93005; 94640; 96365; 96367; A4216; G0008; G0009; G8978-GP-CJ; G8979-GP-CI; G8987-GO-CK; G8988-GO-CI; J1956; J2543; J3370; J7050; J7506; J7620; Q2036

== ENCOUNTER 2019-09-04 04:38 | Inpatient (IN) | payer MEDICARE, MEDICAID ==
[2019-09-04 05:59] LABS: Bilirubin Negative (Negative); Blood, Urine 1+ (Negative); Calcium Oxalate Crystals 1+ HPF (None Seen); Clarity Clear (Clear); Glucose, Urine (Dipstick) Normal (Negative); Leukocyte 250 Leu/uL (Negative); Mucous/LPF Rare LPF (<2+); Nitrite Negative (Negative); Protein, Urine (Dipstick) Negative (Neg-Trace); RBC/HPF 0-3 HPF (0-3); Squamous Epithelial 0-3 HPF (0-3); Urobilinogen Normal mg/dL (Less than 2); WBC/HPF 21-50 HPF (0-3)
[2019-09-04 06:00] LABS: Bacteria/HPF 1+ HPF (None Seen)
[2019-09-04 06:32] VITALS: BMI 27.4
[2019-09-04] MEDS ORDERED: Prevnar 13-Val Conj/PF 0.5 ML SYRINGE IM ONE (08:30)
[2019-09-04] MEDS ORDERED: FLU VACC TS2019-20(65YR UP)/PF 180 MCG/0.5 ML SYRINGE IM ONE (08:30)
--- NOTE | 2019-09-04 17:00 | PDOC.HHP ---
Hospitalist HPI - History of Present Illness shortness of breath/cough History of Present Illness: This is an 84 year old male with past medical history of lung cancer s/p total laryngectomy and trach 15 years ago who presents with worsening shortness of breath and cough for the past few days. The patient had a fever of 103.3 two weeks ago. He went to the ER and was diagnosed with pneumonia. He was prescribed antibiotics for seven days which finished on Saturday. Daughter does not recall the name of it. He was doing better but got worst again over the past few days with increasing shortness of breath, wheezing and productive cough. HE denies chest pain or palpitations. No fevers or chills this time. He did have questionable UTI last month and received a course of bactrim and carmona catheter was changed. ED Course: Vitals were unremarkable in the ER. WBC was noted to be 19.3. Lactate was normal. .The patient was given 2.5L NS bolus, IV levaquin, 2 grams of cefepime, and IV methylprednisolone. Chest X ray appears to show a RENU pneumonia. THe patient says he feels less short of breath. Hospitalist ROS - Review of Systems Constitutional: denies: fever, chills ENT: denies: ear pain, ear discharge Respiratory: reports: cough, shortness of breath Cardiovascular: denies: chest pain, palpitations, orthopnea, edema, light headedness Gastrointestinal: reports: abdominal pain (abdominal tightness). denies: nausea , vomiting Genitourinary: denies: dysuria, frequency, incontinence Musculoskeletal: denies: neck pain, shoulder pain, arm pain - Medication Medications: Active Medications Generic Name Dose Route Start Last Admin Trade Name Freq PRN Reason Stop Dose Admin Albuterol/Ipratropium 3 ml 09/04/19 10:30 09/04/19 15:11 Duoneb NEB 09/04/19 17:00 3 ml [id number] MITUL Administration Hospitalist History - Past Medical History Cardiac: reports: no pertinent history (Lung cancer s/p laryngectomy and resection of RENU 15 years ago. Trach 15 years) Endocrine: reports: Hypothyroidism Other Medical History: Arthritis of the hip History of lung cancer s/p laryngectomy and trach Chronic carmona due to prostate problems - Past Surgical History Other Surgical History: S/p laryngectomy S/p RENU resection 15 years ago Trach 15 years ago S/p removal of part of thyroid - Family History Other Family History: None - Social History Smoking Status: Former smoker (smoked for 30 years, quit 30 years ago) Alcohol: reports: None Drugs: reports: none Living Situation: Other (lives at home his at [place]) Activity level: uses cane/walker - Exam General Appearance: NAD, awake alert General - other findings: appears to be in moderate distress from excess coughing Eye: PERRL, anicteric sclera ENT: normocephalic atraumatic, no oropharyngeal lesions Neck: supple, symmetric, no JVD Heart: RRR, no murmur, no gallops, no rubs Respiratory: CTAB Respiratory - other findings: diffuse wheezing Gastrointestinal: soft, non-tender, non-distended Extremities: no cyanosis, no clubbing, no edema Skin: normal turgor, no lesions, no rashes Neurological: cranial nerve grossly intact, normal sensation to touch, no focal deficits, no new deficit Hospitalist Results - Labs Lab results: Urine Ketones Negative mg/dL (Negative) 09/04/19 05:40 Urine Blood 1+ (Negative) A 09/04/19 05:40 Urine Nitrite Negative (Negative) 09/04/19 05:40 Ur Leukocyte Esterase 250 Margo/uL (Negative) A 09/04/19 05:40 Urine RBC 0-3 HPF (0-3) 09/04/19 05:40 Urine WBC 21-50 HPF (0-3) A 09/04/19 05:40 Ur Squamous Epith Cells 0-3 HPF (0-3) 09/04/19 05:40 Urine Bacteria 1+ HPF (None Seen) A 09/04/19 05:40 Hospitalist H&P A/P - Plan Plan: This is an 84 year old male with PMH of lung cancer s/p laryngectomy, lung resection and trach presenting with increasing shortness of breath and cough #Acute COPD exacerbation #Pneumonia - chest Xray appeared to show a RENU pneumonia. Will continue IV steroids, standing breathing treatments and neb prn - needs frequent suctioning q2 hours prn - will do IV vancomycin and zosyn given that patient has received multiple antibiotics recently Hypertension - continue coreg - hold lasix History of DVT - on coumadin at home - check INR today GERD: continue nexium Anemia - Hb 12 - will monitor CKD - creatinine 1.17. S/p 2L IV bolus. Repeat BMP tomorrow DVT prophylaxis: coumadin Code status: full code
[2019-09-04] MEDS ORDERED: guaiFENesin ER 600 MG TAB PO SCH (18:00)
[2019-09-04] MEDS: Piperacillin/Tazobactam 3.375 GM in Sodium Chloride 0.9% 100 ML IVPB SCH ×2 (18:10→23:26)
[2019-09-04] MEDS: methylPREDNISolone Sod Succ 40 MG VIAL IVP SCH (18:11)
[2019-09-04] MEDS: Vancomycin HCl 1 GM in Premix Bag 1 BAG IVPB SCH (18:11)
[2019-09-04 18:24] LABS: INR-International Normal Ratio 2.4; Prothrombin Time 25.9 SEC (12.0-14.7)
[2019-09-04] MEDS: Carvedilol 6.25 MG TAB PO SCH (20:35)
[2019-09-04] MEDS: Guaifenesin DM 100-10/5 ML UDCUP PO PRN (23:25)
[2019-09-05] MEDS: methylPREDNISolone Sod Succ 40 MG VIAL IVP SCH ×3 (00:50→17:23)
[2019-09-05] MEDS: Acetaminophen 500 MG TAB PO PRN ×2 (01:10→17:17)
[2019-09-05] MEDS: Albuterol Sulfate 1.25 MG/3 ML NEB IPPB PRN ×4 (02:23→20:02)
[2019-09-05] MEDS: Piperacillin/Tazobactam 3.375 GM in Sodium Chloride 0.9% 100 ML IVPB SCH ×4 (04:31→23:41)
[2019-09-05] MEDS: Levothyroxine Sodium 112 MCG TAB PO SCH (04:32)
[2019-09-05] MEDS: Guaifenesin DM 100-10/5 ML UDCUP PO PRN (04:32)
[2019-09-05] MEDS: Levothyroxine Sodium 25 MCG TAB PO SCH (04:32)
[2019-09-05] MEDS: Vancomycin HCl 1 GM in Premix Bag 1 BAG IVPB SCH ×2 (05:37→17:17)
[2019-09-05 05:59] LABS: Hemoglobin 11.7 g/dL (14.0-18.0); Mean Corpuscular HGB CONC 33.3 g/dL (32.0-36.0); Mean Corpuscular Hemoglobin 29.4 pg (27.0-31.0); Mean Corpuscular Volume 88.3 fL (78.0-98.0); Mean Platelet Volume 6.1 fL (7.4-10.4); Platelet Count 316 thou/uL (130-400); RBC Distribution Width 12.4 % (11.5-14.5); Red Blood Cell (RBC) Count 3.97 mill/uL (4.70-6.10); White Blood Cell (WBC) Count 11.5 thou/uL (4.8-10.8)
[2019-09-05 06:26] LABS: Anion Gap 14 mmol/L (10-20); BUN (Urea Nitrogen) 19 mg/dL (8.4-25.7); Calc. Creatinine Clearance 53 mL/min (70-130); Calcium 8.3 mg/dL (7.8-10.44); Carbon Dioxide 24 mmol/L (23-31); Chloride 104 mmol/L (98-107); Estimated GFR-MDRD 55; Glucose 152 mg/dL (83-110); Potassium 3.6 mmol/L (3.5-5.1); Sodium 138 mmol/L (136-145)
[2019-09-05] MEDS: Carvedilol 6.25 MG TAB PO SCH ×2 (07:44→20:43)
[2019-09-05] MEDS: guaiFENesin ER 600 MG TAB PO SCH ×2 (07:44→20:43)
[2019-09-05] MEDS ORDERED: Non-Formulary Item 1 EACH (Levothyroxine Sodium [Synthroid] 137 MCG) PO SCH (09:00)
--- NOTE | 2019-09-05 16:20 | PDOC.HOSPP ---
- Subjective Encounter Date: 09/05/19 Encounter Time: 16:18 Subjective: Mr. Hernandez was seen today in follow-up of acute respiratory failure. He says he feels better, and is asking to go home. - Objective Vital Signs & Weight: Vital Signs (12 hours) Temp Pulse Resp BP BP Pulse Ox 09/05/19 15:52 80 20 100 09/05/19 08:53 86 16 97 09/05/19 07:44 120/64 09/05/19 07:43 98.2 F 80 24 H 120/64 97 Weight Weight 186 lb 2 oz I&O: 09/04/19 09/05/19 09/06/19 06:59 06:59 06:59 Output Total 100 Balance -100 Result Diagrams: 09/05/19 05:48 09/05/19 05:48 Hospitalist ROS - Medication Medications: Active Medications Generic Name Dose Route Start Last Admin Trade Name Freq PRN Reason Stop Dose Admin Acetaminophen 1,000 mg 09/05/19 01:02 09/05/19 01:10 Tylenol PO 1,000 mg Q6H PRN Administration Headache/Fever/MILD Pain 1-3 Albuterol Sulfate 1.25 mg 09/04/19 17:23 09/05/19 15:52 Albuterol Sulfate IPPB 1.25 mg Q2H PRN Administration Wheezing Carvedilol 6.25 mg 09/04/19 21:00 09/05/19 07:44 Coreg PO 6.25 mg BID MITUL Administration Guaifenesin 600 mg 09/05/19 09:00 09/05/19 07:44 Mucinex PO 600 mg Q12HR MITUL Administration Guaifenesin/Dextromethorphan 15 ml 09/04/19 23:13 09/05/19 04:32 Robitussin Dm PO 15 ml Q4H PRN Administration Cough Vancomycin HCl 1 gm/ Device 200 mls @ 200 mls/hr 09/04/19 18:00 09/05/19 05: 37 IVPB 200 mls 0600,1800 MITUL Administration Piperacillin Sod/Tazobactam 100 mls @ 200 mls/hr 09/04/19 18:00 09/05/19 11: 01 Sod 3.375 gm/ Sodium Chloride IVPB 100 mls Q6HR MITUL Administration Levothyroxine Sodium 112 mcg 09/05/19 06:00 09/05/19 04:32 Synthroid PO 112 mcg 0600 MITUL Administration Levothyroxine Sodium 25 mcg 09/05/19 06:00 09/05/19 04:32 Synthroid PO 25 mcg 0600 MITUL Administration Methylprednisolone Sodium Succinate 20 mg 09/04/19 18:00 09/05/19 11:01 Solu-Medrol IVP 20 mg 0200,1000,1800 MITUL Administration - Exam Eye: PERRL ENT - other findings: + tacheostomy Heart: RRR, no murmur, no gallops, no rubs, normal peripheral pulses Respiratory: CTAB, no rales, no ronchi, normal chest expansion, wheezes (+ occasional wheeze and rhonchi) Gastrointestinal: soft, non-tender, non-distended, normal bowel sounds, no palpable masses, no hepatomegaly, no splenomegaly Extremities: no cyanosis (+ right foot- + swelling, and dark eschar on the dorsum and plantar aspect of the foot. pulses are palpable but diminshed, foul odor from the foot.), no edema Hosp A/P (1) COPD exacerbation Code(s): J44.1 - CHRONIC OBSTRUCTIVE PULMONARY DISEASE W (ACUTE) EXACERBATION Status: Acute (2) UTI (urinary tract infection) Status: Acute Qualifiers: Urinary tract infection type: catheter-associated UTI Indwelling urinary catheter type: indwelling urethral catheter Encounter type: initial encounter Qualified Code(s): T83.511A - Infection and inflammatory reaction due to indwelling urethral catheter, initial encounter; N39.0 - Urinary tract infection , site not specified; N39.0 - Urinary tract infection, site not specified (3) History of lung cancer Code(s): Z85.118 - PERSONAL HISTORY OF MALIGNANT NEOPLASM OF BRONCHUS AND LUNG Status: Chronic (4) S/P laryngectomy Status: Chronic - Plan * Acute on chronic respiratory failure- likely due to COPD * Continue Zosyn and Duonebs * UTI- continue the current antibiotics amd await cultures * re-assess in the AM- and possible home tomorrow if stable
[2019-09-05] MEDS ORDERED: Warfarin Sodium 1.5 MG TAB PO SCH (17:00)
[2019-09-05] MEDS ORDERED: Warfarin Sodium 0.5 MG HALF.TAB PO SCH (18:00)
[2019-09-06] MEDS: methylPREDNISolone Sod Succ 40 MG VIAL IVP SCH ×2 (01:20→09:02)
[2019-09-06] MEDS: Albuterol Sulfate 1.25 MG/3 ML NEB IPPB PRN ×2 (01:35→09:15)
[2019-09-06] MEDS: Levothyroxine Sodium 25 MCG TAB PO SCH (04:49)
[2019-09-06] MEDS: Vancomycin HCl 1 GM in Premix Bag 1 BAG IVPB SCH (04:50)
[2019-09-06] MEDS: Piperacillin/Tazobactam 3.375 GM in Sodium Chloride 0.9% 100 ML IVPB SCH ×2 (04:50→12:40)
[2019-09-06] MEDS: Levothyroxine Sodium 112 MCG TAB PO SCH (04:50)
[2019-09-06 06:19] LABS: #Basophils 0.1 thou/uL (0.0-0.2); #Lymphocytes 0.6 thou/uL (1.20-3.40); #Monocytes 0.2 thou/uL (0.11-0.59); %Basophils 0.5 % (0.0-1.0); %Eosinophils 0.1 % (0.0-10.0); %Lymphocytes 5.8 % (21.0-51.0); %Neutrophils 91.7 % (42.0-75.0); Mean Corpuscular HGB CONC 32.9 g/dL (32.0-36.0); Mean Corpuscular Hemoglobin 29.2 pg (27.0-31.0); Mean Platelet Volume 6.3 fL (7.4-10.4); Platelet Count 328 thou/uL (130-400); RBC Distribution Width 12.6 % (11.5-14.5); White Blood Cell (WBC) Count 10.8 thou/uL (4.8-10.8)
[2019-09-06 06:25] LABS: INR-International Normal Ratio 2.4; Prothrombin Time 26.2 SEC (12.0-14.7)
[2019-09-06 06:39] LABS: Anion Gap 11 mmol/L (10-20); BUN (Urea Nitrogen) 20 mg/dL (8.4-25.7); Calc. Creatinine Clearance 57 mL/min (70-130); Calcium 8.2 mg/dL (7.8-10.44); Carbon Dioxide 27 mmol/L (23-31); Chloride 105 mmol/L (98-107); Estimated GFR-MDRD 61; Glucose 116 mg/dL (83-110); Potassium 3.4 mmol/L (3.5-5.1); Sodium 140 mmol/L (136-145)
[2019-09-06] MEDS: Carvedilol 6.25 MG TAB PO SCH (09:02)
[2019-09-06] MEDS: guaiFENesin ER 600 MG TAB PO SCH (09:02)
--- NOTE | 2019-09-06 11:56 | PDOC.HOSPP ---
- Subjective Encounter Date: 09/06/19 Encounter Time: 11:55 Subjective: Mr. Hernandez was seen today in follow-up of UTI and respiratory failure. He says he feels better, and wants to go home. No new complaints. - Objective Vital Signs & Weight: Vital Signs (12 hours) Temp Pulse Resp BP BP Pulse Ox 09/06/19 09:15 82 20 100 09/06/19 09:02 160/87 H 09/06/19 08:00 98.3 F 79 18 160/87 H 100 09/06/19 07:56 100 09/06/19 07:47 100 09/06/19 01:35 91 24 H 100 Weight Weight 186 lb 2 oz I&O: 09/05/19 09/06/19 09/07/19 06:59 06:59 06:59 Output Total 100 Balance -100 Result Diagrams: 09/06/19 05:49 09/06/19 05:49 Hospitalist ROS - Medication Medications: Active Medications Generic Name Dose Route Start Last Admin Trade Name Freq PRN Reason Stop Dose Admin Acetaminophen 1,000 mg 09/05/19 01:02 09/05/19 17:17 Tylenol PO 1,000 mg Q6H PRN Administration Headache/Fever/MILD Pain 1-3 Albuterol Sulfate 1.25 mg 09/04/19 17:23 09/06/19 09:15 Albuterol Sulfate IPPB 1.25 mg Q2H PRN Administration Wheezing Carvedilol 6.25 mg 09/04/19 21:00 09/06/19 09:02 Coreg PO 6.25 mg BID MITUL Administration Guaifenesin 600 mg 09/05/19 09:00 09/06/19 09:02 Mucinex PO 600 mg Q12HR MITUL Administration Guaifenesin/Dextromethorphan 15 ml 09/04/19 23:13 09/05/19 04:32 Robitussin Dm PO 15 ml Q4H PRN Administration Cough Vancomycin HCl 1 gm/ Device 200 mls @ 200 mls/hr 09/04/19 18:00 09/06/19 04: 50 IVPB 200 mls 0600,1800 MITUL Administration Piperacillin Sod/Tazobactam 100 mls @ 200 mls/hr 09/04/19 18:00 09/06/19 04: 50 Sod 3.375 gm/ Sodium Chloride IVPB 100 mls Q6HR MITUL Administration Levothyroxine Sodium 112 mcg 09/05/19 06:00 09/06/19 04:50 Synthroid PO 112 mcg 0600 MITUL Administration Levothyroxine Sodium 25 mcg 09/05/19 06:00 09/06/19 04:49 Synthroid PO 25 mcg 0600 MITUL Administration Methylprednisolone Sodium Succinate 20 mg 09/04/19 18:00 09/06/19 09:02 Solu-Medrol IVP 20 mg 0200,1000,1800 MITUL Administration - Exam Eye: PERRL Heart: RRR, no murmur, no gallops, no rubs, normal peripheral pulses Respiratory: CTAB, no wheezes, no rales, no ronchi, normal chest expansion, no tachypnea, normal percussion Gastrointestinal: soft, non-tender, non-distended, normal bowel sounds, no palpable masses, no hepatomegaly Extremities: no cyanosis, no clubbing, no edema Hosp A/P (1) COPD exacerbation Code(s): J44.1 - CHRONIC OBSTRUCTIVE PULMONARY DISEASE W (ACUTE) EXACERBATION Status: Acute (2) UTI (urinary tract infection) Status: Acute Qualifiers: Urinary tract infection type: catheter-associated UTI Indwelling urinary catheter type: indwelling urethral catheter Encounter type: initial encounter Qualified Code(s): T83.511A - Infection and inflammatory reaction due to indwelling urethral catheter, initial encounter; N39.0 - Urinary tract infection , site not specified; N39.0 - Urinary tract infection, site not specified (3) History of lung cancer Code(s): Z85.118 - PERSONAL HISTORY OF MALIGNANT NEOPLASM OF BRONCHUS AND LUNG Status: Chronic (4) S/P laryngectomy Status: Chronic - Plan * Acute on chronic respiratory failure- likely due to COPD- much improved * UTI- urine is growing MRSA- ? invasive infection or not- Discussed with Dr. Mckinley- will place a formal consult * Lung Cancer- stable- he says he had treatment at [facility] several years ago.
[2019-09-06] MEDS: Acetaminophen 500 MG TAB PO PRN (12:38)
[2019-09-06 14:25] LABS: Vancomycin, Trough 27.2 ug/mL
--- NOTE | 2019-09-06 14:35 | RAD ---
EXAM: Chest 2 views: HISTORY: Cough and dyspnea COMPARISON: 09/04/2019 FINDINGS: There is a normal-sized cardiomediastinal silhouette. Chronic interstitial lung markings are present . These are more prominent in the left lung. There is elevation the left hemidiaphragm. There is no evidence of consolidation, mass, or pleural effusion. Degenerative changes are seen in the spine . IMPRESSION: Stable exam
[2019-09-06] MEDS ORDERED: Simethicone Chewable 80 MG TAB PO PRN (15:28)
[2019-09-06] MEDS: Guaifenesin DM 100-10/5 ML UDCUP PO PRN (15:52)
[2019-09-06 16:47] VITALS: BP 178/84; TEMP 98.1
[2019-09-06] MEDS ORDERED: Warfarin Sodium 0.5 MG HALF.TAB PO SCH (17:00)
--- NOTE | 2019-09-06 20:55 | CON ---
DATE OF CONSULTATION: 09/06/2019 REASON FOR CONSULTATION: Urinary findings associated with respiratory compromise. HISTORY OF PRESENT ILLNESS: An 84-year-old who has a history of chronic obstructive lung disease, laryngeal lung cancer, treated and in remission, chronic tracheostomy after laryngectomy, and a chronic indwelling Kay catheter for unclear reasons with previous evaluation at this hospital by Dr. Mcdaniels about a year and a half ago, who was brought in because of worsening dyspnea, had some temperature elevation. He uses oxygen chronically at home and T-max was 100.[address] He did not have any myalgias or headaches. No sore throat. No chest pain. The patient quit smoking about 10 years ago. He lives in [place] with his . He has chronic right hip pain, which has not changed. Did not have any abdominal pain and denied any genitourinary symptoms beyond the Kay catheter, which is replaced on a monthly basis. Initial findings included heart rate was 93, respiratory rate 29, O2 saturation 99% on room air, BP 140/84, temperature 97.9. The exam showed tachypnea. He appeared in some distress. The breath sounds are markedly diminished. Some wheezing noted both in's and expiratorily. Tracheostomy with little secretion. Abdomen exam was normal. The patient had an indwelling Kay catheter with some hypospadia, which was traumatic. Initial laboratory data; sodium 138, creatinine 1.25. White cell count 11.5, hemoglobin 11.7, platelets 316, and 91% neutrophils. Urinalysis with 21 to 50 wbc's. Blood culture was not submitted, but urine culture with MRSA, greater than 100,000 CFUs. The patient has been receiving inhalers, methylprednisolone, Zosyn, and vancomycin. Currently, he is wishing to go home and he is awake. Communication is somewhat difficult because of his laryngectomy. He denies any headaches. The dyspnea has improved markedly. Not much secretions. No chest pain. A little bit of bloating in the abdominal area, but no diarrhea. Still with chronic right hip pain, which is unchanged. PAST MEDICAL HISTORY: COPD; laryngeal cancer, status post laryngectomy, in remission; lung cancer, status post resection and in remission; BPH with urinary outflow tract obstruction with chronic indwelling Kay catheter. FAMILY HISTORY: Noncontributory. SOCIAL HISTORY: Former smoker, quit about 10 years ago. Lives in [place] with who has cognitive dysfunction. ALLERGIES: NEGATIVE. CURRENT MEDICATIONS: In addition to the antimicrobials, he is on; 1. Inhalers. 2. Mucinex. 3. Synthroid. 4. Solu-Medrol. PHYSICAL EXAMINATION: VITAL SIGNS: T-max 98.4, blood pressure 160/87, pulse 79, respirations 18 to 20, O2 saturation 100%. SKIN: With some areas of shallow erythema with hyperkeratosis, blistering in the intergluteal region, right and left side. He has quite a bit of onychodystrophy and onycholysis, pretty much in all toenails. Erythema of the distal toes, right and left side in very symmetric distribution. Peripheral IV access and a Kay catheter with hypospadia. No lymphadenopathy. HEENT: Ocular movements conjugate. Oral cavity with only a few remaining teeth in place with marked gum resorption. NECK: Supple. No jugular vein distention. Laryngectomy with tracheostomy. LUNGS: With markedly diminished breath sounds. Faint wheezing noticed in both right and left hemithorax. HEART: Diminished heart sounds. S1 and S2. No S3. ABDOMEN: Soft, not distended or tender. No ascites. No bladder distention. EXTREMITIES: No joint inflammatory activity. Log-roll maneuver does not elicit pain in either right or left side. No edema. Pulses are 1+ in dorsalis pedis. Cap refill is normal. NEUROLOGIC: He is oriented, follows commands, pleasant. LABORATORY DATA: Followup labs; white cell count 10.8, hemoglobin 12, platelets 328, creatinine 1.15. ASSESSMENT: Chronic obstructive pulmonary disease; laryngectomy for management of laryngeal cancer, in remission; history of lung cancer, in remission, following resection; indwelling Kay catheter, probably for management of outflow tract obstruction from benign prostatic hyperplasia, unclear in that regard. The patient has had an indwelling Kay catheter for many years now. Dr. Mcdaniels last year has offered suprapubic placement, but that was declined. DISCUSSION: The reason for admission was mostly the respiratory symptoms, probably due to bronchospasm, decompensated COPD. Recommend checking his chest x-ray. I do not think the urinary tract was involved in the symptoms that led to a condition. Blood cultures were not submitted, so there is a smaller chance that he did have an invasive UTI, but that is not likely. If there is some concern, then I would encourage a discharge planning with Bactrim, maybe for 10 or 14 days, and I would encourage the patient down the road to obtain a suprapubic catheter, which would decrease the risk of complications. If chest x-ray is abnormal, then that would delay discharge planning. Otherwise, I would consider discharge planning. Job ID: [id number]
--- NOTE | 2019-09-07 01:56 | DIS ---
DATE OF ADMISSION: 09/04/2019 DATE OF DISCHARGE: 09/06/2019 DISCHARGE DISPOSITION: Home. DISCHARGE DIAGNOSES: 1. Gtakj-lz-tyqasky respiratory failure with hypoxemia. 2. Chronic obstructive pulmonary disease exacerbation. 3. Urinary tract infection. 4. History of laryngeal cancer status post laryngectomy. 5. History of lung cancer. 6. Hypothyroidism. DISCHARGE MEDICATIONS: Include; 1. Bactrim DS 1 tablet twice daily. 2. Coumadin 3 mg as directed. 3. Levothyroxine 137 mcg p.o. daily. 4. Lasix 40 mg daily. 5. Nexium 40 mg daily. 6. Carvedilol 6.25 mg twice a day. CODE STATUS: Full code. ALLERGIES: NO KNOWN DRUG ALLERGIES. HOSPITAL COURSE: Mr. Hernandez is an 84-year-old gentleman who has a history of lung cancer as well as cancer of the larynx. He is status post laryngectomy. He had that over a decade ago at [facility]. He was admitted to the hospital due to complaints of shortness of breath, cough, and some wheezing. He was admitted for COPD exacerbation, treated with IV antibiotics including vancomycin and Zosyn. During his evaluation, he was found to have a urinary tract infection. He has a chronic indwelling Kay catheter. The urine culture grew Staph aureus which was methicillin resistant. For this reason, Dr. Mckinley was consulted and it was recommended that he could be discharged home on Bactrim DS for 7 days. The patient actually did very well, in fact after just one day in the hospital he was actually asking to go home. He was kept in the hospital 1 additional day to get the final urine culture results, which was done and as previously stated, he is being discharged home on Bactrim DS, which would help with both the upper respiratory as well as a urinary tract infection and to follow up with his primary care physician in 1 to 2 weeks. Job ID: [id number]
[2019-09-07] MEDS ORDERED: Warfarin Sodium 3 MG TAB PO SCH (17:00)
--- NOTE | 2019-09-08 07:55 | PQF ---
NATALY HINDS TONI MD [id number] T4-A- 4416 [id number] CLINICAL DOCUMENTATION CLARIFICATION FORM: POST DISCHARGE Addendum to original discharge summary date: ____ Late entry note date: __ DATE:09/08/2019 ATTN: YOBANY GUTIERREZ MD Please exercise your independent, professional judgment in responding to the clarification form. Clinical indicators are provided on the bottom of this form for your review Please check appropriate box(s) to clarify if the following diagnosis has been ruled in or ruled out: Pneumonia [ X ] Ruled in diagnosis [X] Continue to treat [ ] Resolved [ ] Ruled out diagnosis [ ] Cannot rule out diagnosis [ ] Other diagnosis [ ] Unable to determine For continuity of documentation, please document condition throughout progress notes and discharge summary. Thank You. CLINICAL INDICATORS - SIGNS / SYMPTOMS / LABS Cough- Documented in Hospitalist History & Physical on 09/04 by Holly Laurent Patient had a fever of 103.3 two weeks ago. He went to ER and was diagnosed with pneumonia.He was prescribed antibiotics for seven days which finished on saturday-Documented in Hospitalist History & Physical on 09/04 by Holly Laurent WBC-19.3-Documented in Hospitalist History & Physical on 09/04 by Holly Laurent Pneumonia-Documented in Hospitalist History & Physical on 09/04 by Holly Laurent Acute COPD exacerbation-Documented in Hospitalist History & Physical on 09/04 by Holly Laurent Chest x ray appeared to show a REUN Pneumonia--Documented in Hospitalist History & Physical on 09/04 by Holly Laurent Acute on chronic respiratory failure -Documented in Hospitalist History & Physical on 09/04 by Holly Laurent RISK FACTORS Acute COPD exacerbation-Documented in Hospitalist History & Physical on 09/04 by Holly Laurent Former smoker-Documented in Hospitalist History & Physical on 09/04 by Holly Laurent TREATMENTS IV levaquin -Documented in Hospitalist History & Physical on 09/04 by Holly Laurent 2 gm of cefepime-Documented in Hospitalist History & Physical on 09/04 by Holly Laurent Will do IV vancomycin and zosyn-Documented in Hospitalist History & Physical on 09/04 by Holly Laurent SAP Clinical Trial Associate [employer] Winform Viewer (This form is maintained as a part of the permanent medical record) 2014 [email or web address], [employer]. All Rights Reserved [email or web address]
--- NOTE | 2019-09-14 09:12 | PQF ---
NATALY HINDS TONI MD [id number] T4-A- 4416 [id number] CLINICAL DOCUMENTATION CLARIFICATION FORM: POST DISCHARGE Addendum to original discharge summary date: ____ Late entry note date: __ DATE: 09/14/2019 ATTN: VITO ADAN MD Please exercise your independent, professional judgment in responding to the clarification form. Clinical indicators are provided on the bottom of this form for your review Please check appropriate box(es): [ ] Sepsis due to: (Pna, UTI, gangrenous gall bladder, etc.) Due to: [ ] Device (please specify) [ ] Implant [ ] Graft [ ] Infusion [ X ] SIRS due to non-infectious process (please specify etiology) [ ] with organ dysfunction [X ] without organ dysfunction [ ] Severe sepsis with acute organ dysfunction of: (Examples: respiratory failure, encephalopathy, acute kidney failure, other) [ ] Septic Shock [ ] Localized infection without sepsis [ ] Other diagnosis [ ] Unable to determine In addition, please specify: Present on Admission (POA): [ X ] Yes [ ] No [ ] Unable to determine For continuity of documentation, please document condition throughout progress notes and discharge summary. Thank You. CLINICAL INDICATORS - SIGNS / SYMPTOMS / LABS Etgj-50-Ccbzbyypry in ED on 09/04 by Kayla Aleman MD Pneumonia-Documented in ED on 09/04 by Kayla Aleman MD Acute COPD exacerbation--Documented in ED on 09/04 by Kayla Aleman MD WBC was noted to be 19.3, Lactate was normal-Documented in H&P on .09/04 by Anastasiia Barrera Acute on chronic respiratory failure with hypoxemia-Documented in Discharge summary on 09/06 by Vito Adan Urinary tract infection--Documented in Discharge summary on 09/06 by Vito Adan RISK FACTORS Pneumonia-Documented in ED on 09/04 by Kayla Aleman MD Acute COPD exacerbation--Documented in ED on 09/04 by Kayla Aleman MD TREATMENTS: Will do IV vancomycin and zosyn-Documented in H&P on .09/04 by Anastasiia Barrera 2 gm of Cefepime-Documented in H&P on .09/04 by Anastasiiaryan Barrera SAP Computed Tomography Technician [employer] Winform Viewer (This form is maintained as a part of the permanent medical record) 2014 [employer], [employer]. All Rights Reserved [email or web address] [phone] MTDD
--- NOTE | 2019-09-22 20:15 | PQF ---
NATALY HINDS TONI MD [id number] T4-A- 4416 [id number] CLINICAL DOCUMENTATION CLARIFICATION FORM: POST DISCHARGE Addendum to original discharge summary date: ____ Late entry note date: __ DATE:09/22/2019 ATTN: VITO ADAN MD Please exercise your independent, professional judgment in responding to the clarification form. Clinical indicators are provided on the bottom of this form for your review Please check appropriate box(s): kindly clarify the diagnosis occasioning on admission; [ ] Pneumonia [ X Acute on chronic respiratory failure with hypoxia [ X ] COPD exacerbation [ ] Other diagnosis [ ] Unable to determine For continuity of documentation, please document condition throughout progress notes and discharge summary. Thank You. CLINICAL INDICATORS - SIGNS / SYMPTOMS / LABS This is an 84 year old male with PMH of lung cancer s/p laryngectomy, lung resection and trach 15 years ago who presents with worsening shortness of breath and cough for the past few days -Documented in H&P on 09/04 by Holly Laurent Acute COPD exacerbation, Pneumonia-Documented in H&P on 09/04 by Holly Laurent Acute on chronic respiratory failure -likely due to COPD-Documented in PN on by Vito Adan He was admitted to the hospital due to complaints of shortness of breath, cough and some wheezing. He ws admitted for COPD exacerbation , Treated with IV antibiotics including vancomycin and Zosyn-Documented in Discharge summary on by Vito Adan RISK FACTORS Acute COPD exacerbation, Pneumonia-Documented in H&P on 09/04 by Holly Laurent Acute on chronic respiratory failure -likely due to COPD-Documented in PN on by Vito Adan TREATMENTS: Will continue IV steroids, Standing breathing treatments-Documented in H&P on by Holly Lauretn Will do IV vancomycin and zosyn given that patient has received multiple antibiotics recently -Documented in H&P on 09/04 by Holly Laurent Continue the current antibiotics -Documented in PN on 09/05 by Vito Adan Plastic Mould Maker Crystal Reports Winform Viewer (This form is maintained as a part of the permanent medical record) 2014 [facility], [employer]. All Rights Reserved [email or web address]
== END 2019-09-06 17:31 | disposition home or self-care (01) | DRG 189 ==
LOC: ERS 04:38 → T4-A 06:29
PROVIDERS: ADMIT Family Medicine; ATTEND Emergency Medicine
DX: J96.21 Acute and chronic respiratory failure with hypoxia (principal); J18.9 Pneumonia, unspecified organism; J44.1 Chronic obstructive pulmonary disease with (acute) exacerbation; T83.511A Infection and inflammatory reaction due to indwelling urethral catheter, initial encounter; N39.0 Urinary tract infection, site not specified; J44.0 Chronic obstructive pulmonary disease with (acute) lower respiratory infection; R65.10 Systemic inflammatory response syndrome (SIRS) of non-infectious origin without acute organ dysfunction; E03.9 Hypothyroidism, unspecified; D64.9 Anemia, unspecified; K21.9 Gastro-esophageal reflux disease without esophagitis; I12.9 Hypertensive chronic kidney disease with stage 1 through stage 4 chronic kidney disease, or unspecified chronic kidney disease; N18.9 Chronic kidney disease, unspecified; N40.0 Benign prostatic hyperplasia without lower urinary tract symptoms; Y84.6 Urinary catheterization as the cause of abnormal reaction of the patient, or of later complication, without mention of misadventure at the time of the procedure; Z85.21 Personal history of malignant neoplasm of larynx; Z85.118 Personal history of other malignant neoplasm of bronchus and lung; Z87.891 Personal history of nicotine dependence; Z86.718 Personal history of other venous thrombosis and embolism
CPT/HCPCS: 36415; 71046; 80048; 80202; 81003; 81015; 85025; 85027; 85610; 87077; 87086; 87186; 94640; J2543; J2920; J3370; J3490; J7620

== ENCOUNTER 2020-04-13 12:48 | Outpatient (CLI) | payer MEDICARE, MEDICAID ==
--- NOTE | 2020-04-13 15:25 | RAD ---
Modified barium swallow with speech therapist: 04/13/2020 HISTORY: 84-year-old male with R 13.10 dysphagia, unspecified; other dysphagia R 13.19; dysphagia following ot her I 68.891. Squamous cell carcinoma of larynx. FINDINGS: The epiglottis is still present, but the rest of the larynx is surgically absent. Patient has a trach eostomy tube, and therefore there is no risk for aspiration. There is pooling of fluid and air in large pouch in the region of the resected vocal cords and pirifo rm sinuses, caudal to the epiglottis and cephalad to the proximal esophagus. There appears to be in narrowing of the channel between this pouch and the upper esophagus, with restriction of contrast mat erial flowing through this narrowed channel. There is no laryngeal inversion. With the swallow of what appears to be thinner liquid, there is also residue collecting in the vallecula. IMPRESSION: 1. Status post modified laryngectomy. 2. Tracheostomy without radiopaque appliance. 3. Collection of ingested material and air in the pouch caudal to the epiglottis, with residue, and d elayed drainage into the esophagus by what may be a focal narrowing at the junction of this pouch and the upper esophagus.
== END 2020-04-13 12:49 | disposition home or self-care (01) ==
PROVIDERS: ATTEND Student in an Organized Health Care Education/Training Program
DX: I69.891 Dysphagia following other cerebrovascular disease (principal); R13.19 Other dysphagia
CPT/HCPCS: 74230

== ENCOUNTER 2020-07-14 18:05 | Inpatient (IN) | payer MEDICARE, MEDICAID ==
[2020-07-14] MEDS ORDERED: Azithromycin 500 MG VIAL ONE (18:22)
[2020-07-14] MEDS ORDERED: cefTRIAXone\\ROCEPHIN 2 GM VIAL ONE (18:22)
[2020-07-14] MEDS ORDERED: Sodium Chloride For Inhalation 0.9% 3 ML NEB ONE (18:24)
[2020-07-14] MEDS ORDERED: Sodium Chloride 3% (15 ML) NEB NEB SCH (18:30)
[2020-07-14 18:59] LABS: ALT (SGPT) Less than 7 U/L (8-55); AST (SGOT) 5 U/L (5-34); Albumin 2.8 g/dL (3.4-4.8); Alkaline Phosphatase 81 U/L (40-110); Anion Gap 19 mmol/L (10-20); BUN (Urea Nitrogen) 50 mg/dL (8.4-25.7); Bilirubin, Total 1.2 mg/dL (0.2-1.2); CK (CPK) 11 U/L (30-200); Calc. Creatinine Clearance 0 mL/min (70-130); Calcium 7.9 mg/dL (7.8-10.44); Carbon Dioxide 23 mmol/L (23-31); Chloride 100 mmol/L (98-107); Globulin 3.5 g/dL (2.4-3.5); Glucose 122 mg/dL (83-110); Potassium 3.8 mmol/L (3.5-5.1); Protein, Total 6.3 g/dL (5.8-8.1); Sodium 138 mmol/L (136-145)
[2020-07-14 19:01] LABS: Lactic Acid 1.9 mmol/L (0.5-2.2)
[2020-07-14 19:07] LABS: Actual Bicarbonate (HCO3a) 18.4 mEq/L (22-28); Analyzer IN Cardio ER; Base Excess (BEa) -5.3 mEq/L (-2.0 to +3.0); CO2 Tension 30.1 mmHg (35.0-45.0); Calcium, Ionized (arterial) 1.08 mmol/L (1.12-1.30); Carboxyhemoglobin (COHb) 0.3 gm% (0.0-3.0); Hemoglobin (Hb) 11.5 g/dL (14.0-18.0); O2 Tension (PaO2), arterial 220.8 mmHg (> 60.0); Potassium - ABG Lab 3.47 mmol/L (3.70-5.30)
[2020-07-14 19:07] LABS: Hemoglobin 11.6 g/dL (14.0-18.0); Mean Corpuscular HGB CONC 32.7 g/dL (32.0-36.0); Mean Corpuscular Hemoglobin 30.2 pg (27.0-31.0); Mean Corpuscular Volume 92.3 fL (78.0-98.0); Mean Platelet Volume 6.5 fL (7.4-10.4); Platelet Count 331 thou/uL (130-400); RBC Distribution Width 14.3 % (11.5-14.5); Red Blood Cell (RBC) Count 3.84 mill/uL (4.70-6.10); White Blood Cell (WBC) Count 14.9 thou/uL (4.8-10.8)
[2020-07-14 19:08] LABS: ALV-art Gradient 98.075 mmHg (0-20); Puncture Site RBA
[2020-07-14 19:25] LABS: Band 39 % (5-11); Lymphocytes 3 % (21-51); MDiff Complete? YES; Monocytes 3 % (0-10); Neutrophil 54 % (42-75); Platelet Morphology Comment Appears Adequate; Polychromasia SLIGHT = 2-3 cells (100X) (0-2/hpf); Reactive Lymphocytes 1 % (0-10)
[2020-07-14] MEDS ORDERED: Furosemide 40 MG/4 ML VIAL ONE ×2 (19:28→19:29)
[2020-07-14] MEDS ORDERED: methylPREDNISolone Sod Succ/PF 125 MG/2 ML VIAL ONE (19:28)
[2020-07-14 19:50] LABS: SARS-CoV-2 NAA Rapid Test Not Detected (NotDetected)
--- NOTE | 2020-07-14 20:47 | RAD ---
SINGLE VIEW OF THE CHEST: 07/14/20 COMPARISON: 06/05/20, 09/06/19. HISTORY: Difficulty breathing. FINDINGS: Single view of the chest shows normal sized cardiomediastinal silhouette with atherosclerotic calcifi cations of the aorta. There is significant worsening of the interstitial lung disease seen on the rohan or examination. Superimposed air space opacities may be present. There is stable blunting of the left costophrenic angle which may represent scarring or a small let pleural effusion. No pneumothorax is seen. Degenerative changes are seen in the spine. There is partial fusion of multiple left sided ribs likel y secondary to healing of rib fractures. IMPRESSION: Worsening of multifocal opacities which are predominantly interstitial in nature. This could represen t scarring or superimposed infiltrates or scarring with superimposed infiltrates. POS: LISAA
[2020-07-15 00:15] VITALS: BMI 20.2
[2020-07-15] MEDS ORDERED: Acetaminophen 325 MG TAB PO PRN (00:15)
[2020-07-15] MEDS ORDERED: Ondansetron ODT 4 MG TAB SL PRN (00:15)
[2020-07-15] MEDS ORDERED: Ondansetron PF 4 MG/2 ML Vial IVP PRN (00:15)
[2020-07-15] MEDS: methylPREDNISolone Sod Succ/PF 125 MG/2 ML VIAL IVP SCH ×2 (01:11→08:17)
[2020-07-15] MEDS ORDERED: FLU VACC QS2020-21(65YR UP)/PF 240 MCG/0.7 ML SYRINGE IM ONE (09:00)
[2020-07-15 11:27] LABS: INR-International Normal Ratio 3.6; Prothrombin Time 36.7 sec (12.0-14.7)
[2020-07-15] MEDS: Cefepime 1 GM in Sodium Chloride 0.9% 100 ML IVPB SCH (12:27)
--- NOTE | 2020-07-15 12:28 | HP ---
REASON FOR ADMISSION: Pneumonia and chills. HISTORY OF PRESENT ILLNESS: This is a very pleasant male gentleman, who was admitted to the Hospitalist Services early this morning because of hypoxemia associated with cough and high suspicion for aspiration according to the patient's daughter, who was present at bedside. The patient does have a chronic history of laryngeal cancer, for which he had episodes of radiation therapy eventually followed by laryngectomy with long-term radiation effects causing eventual tracheostomy. The patient usually follows up at [facility] for his cancer review and was brought in today from home as the patient was having recurrent cough associated with significant wheezing and some hypoxemia. The patient was further diagnosed with pneumonia, health associated and has been started on IV antibiotics in the hospital. I reviewed and evaluated the patient at his bedside and the patient is alert, oriented, hard to hear. Most of the history has been obtained from the patient's daughter, though the patient does respond to verbal stimuli. Past medical history of laryngeal cancer with history of a lung nodule which per daughter was not diagnosed as cancer. The patient does have a history of COPD and hypothyroidism. Currently, according to the daughter, the patient has been gradually losing weight secondary to failure to thrive as he is unable to eat anything orally and most of the time usually consumes chocolate milk and does not unfortunately take any supplements. According to the patient's daughter, there is concern of food material leaking through the trach tube, though she is not sure why that happened, and according to her, she did visit an ENT physician in [facility], who advised more close monitoring. No other complaints of chest pain, abdominal pain, fever, rigors, chills, nausea, vomiting, diaphoresis, blurring of vision, tingling, numbness, burning micturition, constipation, claudication, anxiety, depression, hematuria, hematochezia, cough, expectoration, syncope, seizures, PND, or orthopnea has been noted at this point of time. PAST MEDICAL HISTORY: 1. COPD. 2. Benign essential hypertension. 3. History of DVT, on Coumadin. 4. GERD. 5. Anemia of chronic disease. 6. Chronic kidney disease. SOCIAL HISTORY: The patient used to be a heavy smoker along with alcohol consumption without any drug abuse. Currently, he quit smoking. PAST SURGICAL HISTORY: 1. History of laryngectomy. 2. Status post left upper lobe lung resection 15 years ago. 3. Tracheostomy 15 years ago. 4. History of removal of thyroid. FAMILY HISTORY: History of hypertension. MEDICATIONS: At home; 1. Warfarin 1.5 mg daily. 2. Coreg 6.25 mg daily. 3. Pantoprazole 40 mg daily. REVIEW OF SYSTEMS: Except as documented, all systems reviewed and negative. PHYSICAL EXAMINATION: GENERAL: This is an 84-year-old male gentleman, lying in his hospital bed, complaining of cough, recurrent in nature with generalized weakness and failure to thrive. VITAL SIGNS: Temperature of 97.4 degrees Fahrenheit, heart rate of 84 per minute, respiratory rate of 20 per minute, saturation 100% with a trach collar, has a blood pressure of 109/69 mmHg. Has an airway, which is clear. Has a trach in place. HEENT: Atraumatic, normocephalic. NECK: Supple. No bruit. No lymphadenopathy. CV: S1, S2. No abnormal rhythms. CHEST: Bilateral air entry present. Basilar rhonchi noted. ABDOMEN: Soft and nontender. Bowel sounds are present. EXTREMITIES: No cyanosis, no edema, no clubbing. NEUROLOGIC: The patient is alert, oriented. No new motor or sensory deficits noted. HEME: No ecchymosis or petechiae. PSYCH: No depression. DIAGNOSTIC DATA: WBC is 14.9, hemoglobin 11.6, hematocrit 35.4, platelets are 331. ABG has been reviewed. Sodium 138, potassium 3.8, chloride 100, carbon dioxide 23, BUN 15, creatinine 1.54, glucose is 122, calcium 7.9, AST 5, alkaline phosphatase is 81, troponin 0.042. BNP is 375.5. SARS-CoV-2 virus evaluation not detected. Blood cultures negative and no growth at this point of time. Flu evaluation A and B, negative for A and B. ASSESSMENT: 1. Health-associated pneumonia present on admission. Currently, on IV antibiotics. 2. Mild chronic obstructive pulmonary disease exacerbation. We will start the patient on some IV steroids for a couple of days. 3. Benign essential hypertension, on Coreg. 4. History of deep venous thrombosis, on oral Coumadin. We will follow INR daily. 5. Gastroesophageal reflux disease, on Nexium. 6. Anemia of chronic disease. 7. Chronic kidney disease, likely stage 2. We will closely monitor on IV hydrate. 8. History of laryngeal cancer, status post radiation therapy and laryngectomy 15 years ago and follows up with [facility] for the same. 9. History of lung nodule resection. 10. Failure to thrive and I think at this point of time the patient might benefit from gastroenterology evaluation and PEG tube placement. Although I did review with the patient's daughter in regard to aspiration risks, still there would be a risk of aspiration even if PEG is placed. We will closely monitor. 11. 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 We will consult ENT at this point of time to review the same with possibility of fistulogram and recommendations. PLAN: Discussed in detail about the diagnosis, treatment, and followup with the patient as well as his daughter. The patient's daughter, Kay Hernandez, is the [facility] and she can be reached at [phone]. Advised about DVT prophylaxis, continued Coumadin, INR daily. We will do CBC, CMP evaluations tomorrow in a.m. We will follow official consultation evaluation by Gastroenterology as well as ENT at this point of time, continue to treat the patient for health-associated pneumonia present on admission. High-risk patient, currently patient's code is full code, though the patient's daughter does understand long-term prognosis. Job ID: [id number]
[2020-07-15] MEDS ORDERED: Artificial Tear Sol 15 ML BOT EA EYE PRN (15:18)
[2020-07-15] MEDS ORDERED: Warfarin Sodium 3 MG TAB PO SCH (17:00)
[2020-07-15] MEDS: Lorazepam 2 MG/ML VIAL SLOW IVP PRN (19:02)
--- NOTE | 2020-07-15 20:11 | RAD ---
ABDOMEN ONE VIEW: 07/15/20 HISTORY: Dobhoff tube placement evaluation. COMPARISON: 06/05/20. FINDINGS: Dobhoff tube is noted extending into the stomach probably generally in the region of the body of the stomach. There is some colon and small bowel gas seen and fecal material in the colon. IMPRESSION: Dobhoff tube extending into the stomach. Prominent left hemidiaphragm elevation. POS: RRE
[2020-07-16] MEDS: Cefepime 1 GM in Sodium Chloride 0.9% 100 ML IVPB SCH ×3 (00:36→23:48)
[2020-07-16] MEDS: Lorazepam 2 MG/ML VIAL SLOW IVP PRN (01:06)
--- NOTE | 2020-07-16 01:28 | CON ---
DATE OF CONSULTATION: 07/15/2020 CHIEF COMPLAINT: Trouble swallowing. HISTORY OF PRESENT ILLNESS: Mr. Hernandez is an 84-year-old man with a history of head and neck cancer who has undergone laryngectomy and has a permanent tracheostomy. He has had progressive trouble swallowing more recently and has lost 30 pounds over the last year. There is question of a fistula between his trachea and laryngeal surgery site. He is admitted with pneumonia and question of aspiration. GI has been consulted to evaluate for gastrostomy tube placement. The patient has had no nausea, vomiting, diarrhea, or blood in the stool. He has had some constipation and has not had a bowel movement for a couple of days. PAST MEDICAL HISTORY: COPD, head and neck cancer, hypertension, history of DVT, on Coumadin, gastroesophageal reflux. PAST SURGICAL HISTORY: Laryngectomy, left upper lobe lung resection, tracheostomy, thyroid surgery. FAMILY HISTORY: Negative for GI malignancies. SOCIAL HISTORY: He quit smoking years ago and quit alcohol previously. No drugs. ALLERGIES: NO KNOWN DRUG ALLERGIES. MEDICATIONS: Currently include: 1. Warfarin. 2. Pantoprazole. 3. Methylprednisolone. 4. Levothyroxine. 5. Cefepime. REVIEW OF SYSTEMS: Negative x10 systems reviewed except as stated in the history of present illness. PHYSICAL EXAMINATION: VITAL SIGNS: Temperature 97.9, pulse 85, blood pressure is 120/75 with oxygen saturations 100% on trach collar with FiO2 of 35%. GENERAL: He is in no acute distress. He is awake and alert, communicative. His is not with him currently. HEENT: His eyes have no scleral icterus. Oropharynx is clear without lesions. He has a Dobbhoff tube in place in his left naris but complains of significant discomfort with that. LUNGS: Have scattered, coarse breath sounds. HEART: Regular rate and rhythm without murmur. ABDOMEN: Soft, nontender, and nondistended. Bowel sounds are present. EXTREMITIES: No lower extremity edema. LABORATORY DATA: White blood cell count 14.9, hemoglobin 11.6, platelets 331. INR 3.6, creatinine 1.54, bilirubin 1.2, AST 5, ALT 7, alkaline phosphatase 81, albumin 2.8. IMPRESSION: 1. Oropharyngeal dysphagia with evidence of aspiration and failure to thrive. 2. Protein-calorie malnutrition and 30-pound weight loss over the last year. 3. Pneumonia and chronic obstructive pulmonary disease. He has a tracheostomy. He is on antibiotics and steroids for that now. 4. History of deep venous thrombosis, on anticoagulation with warfarin. RECOMMENDATIONS: 1. Dobbhoff tube feeds for now. 2. We can perform EGD with percutaneous endoscopic gastrostomy tube placement as his respiratory status improves and his INR returns closer to normal. Recommend holding the warfarin for now. Job ID: [id number]
[2020-07-16] MEDS ORDERED: Levothyroxine Sodium 25 MCG TAB PO SCH (06:00)
[2020-07-16] MEDS ORDERED: Levothyroxine Sodium 112 MCG TAB PO SCH (06:00)
[2020-07-16 06:55] LABS: ALT (SGPT) Less than 7 U/L (8-55); AST (SGOT) 5 U/L (5-34); Alkaline Phosphatase 74 U/L (40-110); Anion Gap 22 mmol/L (10-20); BUN (Urea Nitrogen) 50 mg/dL (8.4-25.7); Bilirubin, Total 0.6 mg/dL (0.2-1.2); Calc. Creatinine Clearance 46 mL/min (70-130); Calcium 9.3 mg/dL (7.8-10.44); Carbon Dioxide 23 mmol/L (23-31); Chloride 105 mmol/L (98-107); Glucose 123 mg/dL (83-110); Potassium 3.6 mmol/L (3.5-5.1); Sodium 146 mmol/L (136-145)
[2020-07-16 07:02] LABS: INR-International Normal Ratio 3.8; Prothrombin Time 38.5 sec (12.0-14.7)
[2020-07-16 07:11] LABS: #Monocytes 0.2 thou/uL (0.11-0.59); #Neutrophils 9.6 thou/uL (1.40-6.50); %Basophils 0.1 % (0.0-1.0); %Eosinophils 0.2 % (0.0-10.0); %Monocytes 1.7 % (0.0-10.0); %Neutrophils 89.1 % (42.0-75.0); Mean Corpuscular HGB CONC 32.6 g/dL (32.0-36.0); Mean Corpuscular Hemoglobin 30.2 pg (27.0-31.0); Mean Corpuscular Volume 92.6 fL (78.0-98.0); Mean Platelet Volume 7.2 fL (7.4-10.4); Platelet Count 300 thou/uL (130-400); RBC Distribution Width 14.4 % (11.5-14.5); Red Blood Cell (RBC) Count 4.32 mill/uL (4.70-6.10); White Blood Cell (WBC) Count 10.8 thou/uL (4.8-10.8)
[2020-07-16] MEDS: methylPREDNISolone Sod Succ 40 MG VIAL IVP SCH (08:53)
[2020-07-16] MEDS ORDERED: Carvedilol 6.25 MG TAB PO SCH (09:00)
--- NOTE | 2020-07-16 11:31 | RAD ---
EXAM: Chest one view: HISTORY: Follow-up bilateral pulmonary parenchymal changes. COMPARISON: 07/14/2020 FINDINGS: Dobbhoff tube in place with the tip in the antrum of the stomach region. Heart size: Within normal limits. Moderate rotation to the left. Lungs: Scattered linear and reticular nodular parenchymal changes in the left lung with some minimal volume loss with little change from prior study. Interstitial parenchymal changes in the right lower lobe unchanged from most recent prior study but new or more prominent when compared to older ex am of 06/05/2020. No significant pleural effusion. IMPRESSION: Little change in the appearance of the left chest with interstitial and reticular nodular parenchymal changes and minimal volume loss. Acute appearing interstitial and groundglass opacity changes in the right base stable from 07/14/2020 but new when compared to 06/05/2020. Continued short-term follow-up.
--- NOTE | 2020-07-16 13:00 | PRG ---
DATE OF SERVICE: 07/16/2020 SUBJECTIVE: Mr. Hernandez still complains of discomfort from his Dobbhoff tube, but he is sleeping while I walked in the room. He has had no nausea or vomiting. No bowel movement. OBJECTIVE: VITAL SIGNS: Temperature is 97.4, pulse 88, blood pressure 145/81, oxygen saturation is recorded at 100%; however, it is 87% when I walked in the room on the trach collar. It is came up when he is arouse. GENERAL: He is in no acute distress. Awake and responsive. LUNGS: Clear to auscultation bilaterally. HEART: Regular rate and rhythm without murmur. ABDOMEN: Soft, tender in the lower abdomen without guarding. Bowel sounds are present. EXTREMITIES: No lower extremity edema. LABORATORY DATA: White blood cell count 10.8, hemoglobin 13.0, platelets 300. INR 3.8, creatinine 1.05. IMPRESSION: 1. Oropharyngeal dysphagia with evidence of aspiration and failure to thrive. 2. Protein calorie malnutrition and 30-pound weight loss over the last year. 3. Pneumonia and chronic obstructive pulmonary disease. He has a tracheostomy. He is on antibiotics and steroids now. 4. History of deep venous thrombosis, on anticoagulation with warfarin. His INR actually went up to 3.8 today. RECOMMENDATIONS: 1. Continue Dobbhoff tube feeds. 2. We will plan EGD with PEG after his pneumonia improves and his INR returns towards normal. Job ID: [id number]
--- NOTE | 2020-07-16 13:21 | PDOC.HOSPP ---
- Subjective Encounter Date: 07/16/20 Encounter Time: 13:19 Subjective: F/u: possible pneumonia He denies cough or worsening SOB. He is begging for water, agreed to diet with risk of aspiration. He is also agreeable for tube feeds but still wants water - Objective Vital Signs & Weight: Vital Signs (12 hours) Temp Pulse Resp BP BP Pulse Ox 07/16/20 13:14 169/91 H 07/16/20 12:00 97.4 F L 88 16 145/81 H 100 07/16/20 08:53 100 07/16/20 08:00 98.3 F 93 15 154/88 H 100 07/16/20 04:43 97.3 F L 89 20 138/73 99 Weight Weight 137 lb 8.002 oz I&O: 07/15/20 07/16/20 07/17/20 06:59 06:59 06:59 Intake Total 230 120 Output Total 400 800 Balance -170 -680 Result Diagrams: 07/16/20 06:20 07/16/20 06:20 Hospitalist ROS - Review of Systems Constitutional: denies: fever, chills - Medication Medications: Active Medications Generic Name Dose Route Start Last Admin Trade Name Freq PRN Reason Stop Dose Admin Carvedilol 6.25 mg 07/16/20 09:00 07/16/20 13:14 Carvedilol 6.25 Mg Tab PO 6.25 mg DAILY MITUL Administration Cefepime HCl 1 gm/ Sodium 100 mls @ 200 mls/hr 07/15/20 12:00 07/16/20 13:13 Chloride IVPB 100 mls 1200,2359 MITUL Administration Levothyroxine Sodium 112 mcg 07/16/20 06:00 07/16/20 06:43 Levothyroxine Sodium 112 Mcg Tab PO 112 mcg 0600 MITUL Administration Levothyroxine Sodium 25 mcg 07/16/20 06:00 07/16/20 06:43 Levothyroxine Sodium 25 Mcg Tab PO 25 mcg 0600 MITUL Administration Lorazepam 1 mg 07/15/20 18:45 07/16/20 01:06 Lorazepam 2 Mg/Ml Vial SLOW IVP 1 mg Q6H PRN Administration Anxiety Methylprednisolone Sodium Succinate 40 mg 07/16/20 09:00 07/16/20 08:53 Methylprednisolone Sod Succ 40 Mg Vial IVP 40 mg DAILY MITUL Administration Pantoprazole Sodium 40 mg 07/16/20 09:00 07/16/20 10:42 Pantoprazole 40 Mg Tab PO Not Given DAILY MITUL - Exam General Appearance: NAD, awake alert General - other findings: trach collar in place Eye: PERRL, anicteric sclera ENT: normocephalic atraumatic, no oropharyngeal lesions Heart: RRR, no murmur, no gallops, no rubs Respiratory: CTAB, no wheezes, no rales, no ronchi Respiratory - other findings: mild rales at base Gastrointestinal: soft, non-tender, non-distended, normal bowel sounds Extremities: no cyanosis, no clubbing, no edema Skin: normal turgor, no lesions, no rashes Hosp A/P - Plan Chest X ray: interstitial and ground glass opacity change This is 84 year old male with laryngeal cancer who presented with cough and hypoxemia Acute hypoxic respiratory failure possibly from aspiration pneumonia - continue IV cefepime .Repeat chest X ray almost unchanged. COVID negative - continue IV steroids Laryngeal cancer - currently on trach collar Hypernatremia - sodium up to 146, start tube feeds NASRIN - resolved Malnutrition - dietary consulted and will start tube feeds. Gi was consulted and plan for endoscopy with PEG tube when pneumonia has improved Hypothyroidism - continue levothyroxine
[2020-07-16 14:28] LABS: Hemoglobin A1c 4.8 % (4.0-6.0)
--- NOTE | 2020-07-16 15:06 | PRG ---
DATE OF SERVICE: 07/16/2020 SUBJECTIVE: I spoke with the patient's daughter. She originally thought that he was having his food gets hung up in his throat, for which, they sought consultation with Dr. Tam. He is now back in the hospital with a question of aspiration pneumonia, which would only be expected if he has a tracheal or pharyngeal fistula related to previous radiation and surgery. It is possible that he could have a stricture from radiation at the anastomosis which could be dilated endoscopically. This might require dilation as well just to get the scope passed to be able to place PEG tube. I discussed the risks and benefits of PEG tube placement with the patient and his daughter. RECOMMENDATIONS: 1. Start Dobbhoff tube feeds. 2. We will plan to proceed with EGD with PEG tube placement and possible dilation if he has a proximal esophageal or anastomotic stricture. We would perform this after his pneumonia is treated further with antibiotics and his INR is closer to 1.5. His current INR is over 3. He is on high dose IV steroids currently as well. In the future after the PEGs placed and the Dobbhoff is removed, he could undergo a barium swallow to determine if there is a significant fistula that could put him at risk for aspiration. Otherwise, he could advance his diet at that point as he tolerates for pleasure feeding or potentially if he requires upper esophageal dilation and improves clinically with that. Then, he might be able to meet more of his nutritional needs by mouth in the future. Job ID: [id number]
[2020-07-16] MEDS ORDERED: Pancrelipase DR 12,000 1 CAP FS PRN (16:30)
[2020-07-16] MEDS ORDERED: Sodium Bicarbonate Tab 325 MG TAB PER TUBE PRN (16:30)
[2020-07-17] MEDS: Lorazepam 2 MG/ML VIAL SLOW IVP PRN (02:05)
[2020-07-17] MEDS: Levothyroxine Sodium 112 MCG TAB PER TUBE SCH (05:43)
[2020-07-17] MEDS: Levothyroxine Sodium 25 MCG TAB PER TUBE SCH (05:43)
[2020-07-17 06:09] LABS: INR-International Normal Ratio 3.7; Prothrombin Time 37.2 sec (12.0-14.7)
[2020-07-17] MEDS: Carvedilol 6.25 MG TAB PER TUBE SCH (09:58)
[2020-07-17] MEDS: methylPREDNISolone Sod Succ 40 MG VIAL IVP SCH (09:58)
[2020-07-17] MEDS: Pantoprazole 40 MG GRANULES PACKET PER TUBE SCH (09:58)
[2020-07-17 11:30] LABS: Anion Gap 15 mmol/L (10-20); BUN (Urea Nitrogen) 49 mg/dL (8.4-25.7); Calc. Creatinine Clearance 58 mL/min (70-130); Calcium 8.9 mg/dL (7.8-10.44); Carbon Dioxide 30 mmol/L (23-31); Chloride 104 mmol/L (98-107); Glucose 109 mg/dL (83-110); Potassium 3.1 mmol/L (3.5-5.1); Sodium 146 mmol/L (136-145)
--- NOTE | 2020-07-17 11:51 | PDOC.HOSPP ---
- Subjective Encounter Date: 07/17/20 Encounter Time: 08:00 Subjective: F/u: laryngeal cancer The patient denies shortness of breath. He has only mild cough. He continues to aspirate with water and requires frequent suctioning. He is still on trach collar which he did not have at home Tube feeds were started yesterday but were held due to some residual and restarted this morning - Objective Vital Signs & Weight: Vital Signs (12 hours) Temp Pulse Resp BP Pulse Ox 07/17/20 07:41 97.6 F 79 15 135/72 98 07/17/20 04:00 97.4 F L 85 18 148/76 H 100 07/17/20 00:56 97.7 F 78 18 141/72 H 100 Weight Admit Weight 137 lb Weight 137 lb 8.002 oz I&O: 07/16/20 07/17/20 07/18/20 06:59 06:59 06:59 Intake Total 120 1250 Output Total 800 900 Balance -680 350 Result Diagrams: 07/16/20 06:20 07/17/20 11:00 Hospitalist ROS - Review of Systems Constitutional: denies: fever, chills - Medication Medications: Active Medications Generic Name Dose Route Start Last Admin Trade Name Freq PRN Reason Stop Dose Admin Carvedilol 6.25 mg 07/17/20 09:00 07/17/20 09:58 Carvedilol 6.25 Mg Tab PER TUBE 6.25 mg DAILY MITUL Administration Cefepime HCl 1 gm/ Sodium 100 mls @ 200 mls/hr 07/15/20 12:00 07/16/20 23:48 Chloride IVPB 100 mls 1200,2359 MITUL Administration Levothyroxine Sodium 112 mcg 07/17/20 06:00 07/17/20 05:43 Levothyroxine Sodium 112 Mcg Tab PER TUBE 112 mcg 0600 MITUL Administration Levothyroxine Sodium 25 mcg 07/17/20 06:00 07/17/20 05:43 Levothyroxine Sodium 25 Mcg Tab PER TUBE 25 mcg 0600 MITUL Administration Lorazepam 1 mg 07/15/20 18:45 07/17/20 02:05 Lorazepam 2 Mg/Ml Vial SLOW IVP 1 mg Q6H PRN Administration Anxiety Methylprednisolone Sodium Succinate 40 mg 07/16/20 09:00 07/17/20 09:58 Methylprednisolone Sod Succ 40 Mg Vial IVP 40 mg DAILY MITUL Administration Pantoprazole Sodium 40 mg 07/17/20 09:00 12 09:58 Pantoprazole 40 Mg Granules Packet PER TUBE 40 mg DAILY MITUL Administration - Exam General Appearance: NAD, awake alert Eye: PERRL, anicteric sclera ENT: normocephalic atraumatic, no oropharyngeal lesions Neck: no JVD Neck - other findings: trach collar in place Heart: RRR, no murmur, no gallops, no rubs Respiratory: CTAB, no wheezes, no rales, no ronchi Gastrointestinal: soft, non-tender, non-distended, normal bowel sounds Extremities: no cyanosis, no clubbing, no edema Skin: normal turgor, no lesions, no rashes Neurological: cranial nerve grossly intact, normal sensation to touch, no weakness Hosp A/P - Plan Chest X ray: interstitial and ground glass opacity change This is 84 year old male with laryngeal cancer who presented with cough and hypoxemia Acute hypoxic respiratory failure possibly from aspiration pneumonia - continue IV cefepime .Repeat chest X ray almost unchanged. COVID negative - continue IV steroids. Attempt to wean off trach collar Laryngeal cancer - currently on trach collar, will try to wean off - palliative care consult placed Hypernatremia - sodium still 146. Continue tube feeds Hypokalemia - potassium 3.1, replace with oral potassium Malnutrition - started tube feeds. Currently not at goal rate, at 10 ml/hour. Advance as tolerated . Palliative care consult placed, will likely need PEG tube once respiratory status is better Supratherapeutic INR - no signs of bleeding currently. INR still > 3, will monitor Hypothyroidism - continue levothyroxine NASRIN - resolved
[2020-07-17] MEDS: Cefepime 1 GM in Sodium Chloride 0.9% 100 ML IVPB SCH ×2 (12:06→23:21)
[2020-07-17] MEDS ORDERED: Pharmacy to Dose- VANCOMYCIN IVPB PRN (15:25)
--- NOTE | 2020-07-17 16:17 | PRG ---
DATE OF SERVICE: 07/17/2020 SUBJECTIVE: Mr. Hernandez is tolerating his tube feeds this afternoon. OBJECTIVE: VITAL SIGNS: Temperature is 97.6, pulse 79, blood pressure 135/72, oxygen saturation 98% on 35% trach collar. LUNGS: Clear to auscultation bilaterally. HEART: Regular rate and rhythm without murmur. ABDOMEN: Soft, nontender, and nondistended. Bowel sounds are present. EXTREMITIES: No lower extremity edema. IMPRESSION: 1. History of laryngeal cancer, status post radiation and laryngectomy with tracheostomy. He has developed dysphagia and inability to meet nutritional needs orally. Question of fistula between the pharyngeal area and trachea due to question of aspiration. 2. Atrial fibrillation, on anticoagulation with warfarin. His INR is slow to improve with his poor nutrition. RECOMMENDATIONS: 1. Continue Dobbhoff tube feeds. 2. We will plan for EGD with possible esophageal dilation and plan for PEG tube placement when his INR has improved as his respiratory status continues to improve. He is currently on steroids and antibiotics for suspected aspiration pneumonia. Job ID: [id number]
[2020-07-17] MEDS: Vancomycin 1 GM in Premix Bag 1 BAG IVPB SCH (16:50)
[2020-07-18] MEDS: Levothyroxine Sodium 25 MCG TAB PER TUBE SCH (05:16)
[2020-07-18] MEDS: Levothyroxine Sodium 112 MCG TAB PER TUBE SCH (05:16)
[2020-07-18 06:09] LABS: INR-International Normal Ratio 2.3
[2020-07-18] MEDS: methylPREDNISolone Sod Succ 40 MG VIAL IVP SCH (08:06)
[2020-07-18] MEDS: Carvedilol 6.25 MG TAB PER TUBE SCH (08:06)
[2020-07-18] MEDS: Pantoprazole 40 MG GRANULES PACKET PER TUBE SCH (08:06)
[2020-07-18] MEDS: Cefepime 1 GM in Sodium Chloride 0.9% 100 ML IVPB SCH (11:33)
--- NOTE | 2020-07-18 14:08 | PRG ---
DATE OF SERVICE: 07/18/2020 SUBJECTIVE: Mr. Hernandez is tolerating Dobhoff tube feeds. OBJECTIVE: VITAL SIGNS: Temperature 97.4, blood pressure 135/77, FiO2 is down to 28% with O2 saturation of 100%. GENERAL: He is in no acute distress. LUNGS: Clear to auscultation bilaterally. HEART: Regular rate and rhythm without murmur. ABDOMEN: Soft, nontender, and nondistended. Bowel sounds are present. EXTREMITIES: No lower extremity edema. IMPRESSION: 1. History of laryngeal cancer, status post radiation and laryngectomy with tracheostomy. He has been having dysphagia and aspiration type symptoms, which could indicate a fistula. He could potentially benefit from esophageal dilation if there is a stricture at the previous radiation or anastomosis site. 2. Atrial fibrillation, on anticoagulation. His INR is very slowly improving. Down to 2.3 today. RECOMMENDATIONS: 1. Continue Dobbhoff tube feeds. 2. Plan EGD with PEG as his respiratory status improves and his INR improves. I would like to see reduction in his oxygen requirement and steroids. Job ID: [id number]
--- NOTE | 2020-07-18 16:34 | CON ---
DATE OF CONSULTATION: REASON FOR CONSULTATION: Fistula and aspiration pneumonia and history of squamous cell carcinoma. HISTORY OF PRESENT ILLNESS: An 84-year-old male patient with a history of squamous cell carcinoma of the larynx, treated primarily with laryngectomy and radiation therapy. He is presenting to the hospital now with shortness of breath, coughing, inability to take p.o. and leaking from the suprastomal site, concerned for a fistula. The patient is aphonic, however with riding in with family, the patient describes some shortness of breath and recurrent cough, wheezing, and some hypoxia, and when the patient presented to the emergency room, it was noted that he has an active pneumonia and was admitted for IV antibiotics. PAST MEDICAL HISTORY: Includes COPD, benign essential hypertension, DVT currently taking Coumadin, gastroesophageal reflux disease, anemia of chronic disease, chronic kidney disease. SOCIAL AND FAMILY HISTORY: The patient was a previous smoker. Significant smoker and alcohol use, which contributed to his laryngeal squamous cell carcinoma. Currently not a smoker. PAST SURGICAL HISTORY: Laryngectomy, left upper lung resection 15 years ago, tracheostomy 15 years ago, and history of thyroidectomy. MEDICATIONS: Currently, he takes; 1. Coumadin. 2. Coreg. 3. Pantoprazole. REVIEW OF SYSTEMS: Negative for 12-point review of systems except for what is listed in HPI. PHYSICAL EXAMINATION: GENERAL: No acute distress. The patient is alert, aphonic, but communicating by pencil and paper, and hand signals. HEAD: Normocephalic and atraumatic with a laryngeal stoma in the suprastomal granulation tissue and ulceration with some inflammatory mucus and some mild drainage. EYES: Pupils are equally round and reactive to light. Extraocular movements are intact. EARS: Right and left pinna are normal. The EAC is clear. The patient is responding appropriately to normal verbal stimuli. NOSE: Nasal mucosa is mildly crusted, but no bleeding. No masses or lesions. MOUTH: Mucous membranes are moist. Tongue is mobile and soft. Floor of mouth is soft and pharynx without lesions or erythema, edema, or purulence. NECK: Central laryngectomy stoma with some tethering at the superior aspect of the laryngectomy stoma with roughly 2 and 2.5 cm elongated from superior to inferior ulceration with some crusting, which was mildly debrided in order to fully visualize the stoma. The patient was given several sips of clear water and eventually saw small amount of clear water coming from the fistula draining directly into the laryngectomy stoma site. PROCEDURE: Flexible nasopharyngoscopy and flexible tracheoscopy were performed. The patient's anesthesia; small amount of 4% lidocaine and phenylephrine were sprayed in the bilateral nares while the patient's head was turned back to allow the medication to go through the nasal cavity. The flexible laryngoscope was passed through the left naris down and visualized the nasopharynx and the pharynx and the neopharynx as well as the esophageal inlet. No clear infection or lesions were noted. The fistula site was not able to be visualized with the scope. The scope was then removed and cleaned and then the patient's trachea was visualized with some significant purulence in the left mainstem bronchi, which was suctioned with flexible Romanian catheter and removed. The patient tolerated the procedure well without complications. ASSESSMENT AND PLAN: The patient is an 84-year-old male patient, presenting with a history of laryngeal squamous cell carcinoma, status post laryngectomy and radiation therapy with laryngectomy stoma that is healthy in all other areas except for supralaryngeal stomal ulceration and fistula and with clear aspiration pneumonia and inability to take p.o. given the patient's difficulty taking p.o., I placed a Dobhoff tube during a nasopharyngoscopy that was confirmed in its location going to the pharyngeal and esophageal inlet. The patient can take the nutrition via the Dobhoff tube as the patient has been unable to take significant p.o. for several days. The patient will need to have antibiotic therapy to clear the aspiration pneumonia. Given the location and the history of a laryngectomy and radiation, the fistula cannot be treated by simple closure and debridement however, and given his history of being followed as the patient at [facility], he will likely need to follow up with [facility], which is the location that he could receive free flap tissue patch in that area, which would close the fistula site. Given his history of radiation therapy, he is prone to wound dehiscence and excision of the fistula would be difficult surgery with a long recovery and would possibly result in significant dysphagia and a wound dehiscence, which would need to be treated with wound VAC as well as hyperbaric oxygen therapy unless healthy nonradiated vascularized tissue would need to be used in order to close the fistula site. Given the patient's difficulty tolerating p.o., and the length of time until this procedure could be completed, I recommend a PEG tube to be placed in order to allow the patient to have nutrition in the meantime, and for the patient to remain n.p.o. with good oral hygiene and a small gauze dressing placed over the fistula to prevent fluid from draining from the fistula site into the laryngectomy stoma. Job ID: [id number]
[2020-07-18] MEDS: Vancomycin 1 GM in Premix Bag 1 BAG IVPB SCH (17:05)
--- NOTE | 2020-07-18 17:22 | PDOC.HOSPP ---
- Subjective Encounter Date: 07/18/20 Encounter Time: 09:30 Subjective: F/u: aspiration pneumonia The patient was on 5L nasal cannula this morning. Spoke to the patient's who says he is on 2.5L. He has been on trach collar for the past 12 years. Nurse stated that food is leaking from esophagus to trach when he follows so there is a fistula Discussed with ENT who states that repairing the fistula will be difficult since he had radiation previously. ENT recommends free flap surgery in [place] if family wants this. The states that she will have a discussion with her again about whether he still wants the feeding tube because she doesn't think he understands that having a feeding tube means that ideally the patient should not drink water either. She states she has discussed with palliative care about whether he can manage feeding tubes at home, and she is unsure and will think about it - Objective Vital Signs & Weight: Vital Signs (12 hours) Temp Pulse Resp BP BP Pulse Ox Pulse Ox 07/18/20 10:24 100 07/18/20 08:06 135/77 07/18/20 08:00 96 07/18/20 07:39 97.4 F L 80 18 135/77 92 L Pulse Ox 07/18/20 10:24 100 07/18/20 08:06 07/18/20 08:00 07/18/20 07:39 Weight Admit Weight 137 lb Weight 137 lb 8.002 oz I&O: 07/17/20 07/18/20 07/19/20 06:59 06:59 06:59 Intake Total 1250 1410 Output Total 900 350 Balance 350 1060 Result Diagrams: 07/16/20 06:20 07/17/20 11:00 Hospitalist ROS - Review of Systems Constitutional: denies: fever, chills - Medication Medications: Active Medications Generic Name Dose Route Start Last Admin Trade Name Freq PRN Reason Stop Dose Admin Carvedilol 6.25 mg 07/17/20 09:00 07/18/20 08:06 Carvedilol 6.25 Mg Tab PER TUBE 6.25 mg DAILY MITUL Administration Cefepime HCl 1 gm/ Sodium 100 mls @ 200 mls/hr 07/15/20 12:00 07/18/20 11:33 Chloride IVPB 100 mls 1200,2359 MITUL Administration Vancomycin HCl 1 gm/ Device 200 mls @ 200 mls/hr 07/17/20 16:00 07/18/20 17:05 IVPB 200 mls 1600 MITUL Administration Levothyroxine Sodium 112 mcg 07/17/20 06:00 07/18/20 05:16 Levothyroxine Sodium 112 Mcg Tab PER TUBE 112 mcg 0600 MITUL Administration Levothyroxine Sodium 25 mcg 07/17/20 06:00 07/18/20 05:16 Levothyroxine Sodium 25 Mcg Tab PER TUBE 25 mcg 0600 MITUL Administration Lorazepam 1 mg 07/15/20 18:45 07/17/20 02:05 Lorazepam 2 Mg/Ml Vial SLOW IVP 1 mg Q6H PRN Administration Anxiety Methylprednisolone Sodium Succinate 40 mg 07/16/20 09:00 07/18/20 08:06 Methylprednisolone Sod Succ 40 Mg Vial IVP 40 mg DAILY MITUL Administration Pantoprazole Sodium 40 mg 07/17/20 09:00 07/18/20 08:06 Pantoprazole 40 Mg Granules Packet PER TUBE 40 mg DAILY MITUL Administration - Exam General Appearance: NAD, awake alert Eye: PERRL, anicteric sclera ENT: normocephalic atraumatic, no oropharyngeal lesions ENT - other findings: trach in place with some secretions evident Heart: RRR, no murmur, no gallops, normal peripheral pulses Respiratory: rales Respiratory - other findings: scattered Gastrointestinal: soft, non-tender, non-distended, no palpable masses Extremities: no cyanosis, no clubbing, no edema Skin: normal turgor, no lesions, no rashes Hosp A/P - Plan Chest X ray: interstitial and ground glass opacity change This is 84 year old male with laryngeal cancer who presented with cough and hypoxemia Acute hypoxic respiratory failure possibly from aspiration pneumonia - continue IV cefepime .Repeat chest X ray 07/16 almost unchanged. COVID negative - continue IV steroids. Attempt to wean down to 2.5L nasal cannula , currently he is on 5L - I have explained to that the patient's pneumonia will likely not improve substantially if he continues to drink water since he aspirates recurrently. 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 to discuss goals of care with the patient since he is high aspiration risk Hypernatremia - sodium 146, will repeat BMP today. Continue tube feeds Hypokalemia - potassium 3.1, repeat potassium Malnutrition - continue tube feeds per dietary recommendations Supratherapeutic INR - INR is down to 2.3. today, will monitor Hypothyroidism - continue levothyroxine NASRIN - resolved Disposition: family to have goals of care discussion about whether they want to proceed with PEG when pneumonia improves or go palliative care route.
[2020-07-18 18:59] LABS: Anion Gap 15 mmol/L (10-20); BUN (Urea Nitrogen) 39 mg/dL (8.4-25.7); Calc. Creatinine Clearance 63 mL/min (70-130); Calcium 8.2 mg/dL (7.8-10.44); Carbon Dioxide 28 mmol/L (23-31); Chloride 103 mmol/L (98-107); Glucose 167 mg/dL (83-110); Potassium 3.7 mmol/L (3.5-5.1); Sodium 142 mmol/L (136-145)
[2020-07-19] MEDS: Cefepime 1 GM in Sodium Chloride 0.9% 100 ML IVPB SCH ×2 (00:17→13:53)
[2020-07-19] MEDS: Levothyroxine Sodium 25 MCG TAB PER TUBE SCH (06:08)
[2020-07-19] MEDS: Levothyroxine Sodium 112 MCG TAB PER TUBE SCH (06:08)
[2020-07-19 06:35] LABS: INR-International Normal Ratio 1.3; Prothrombin Time 16.2 sec (12.0-14.7)
[2020-07-19 06:53] LABS: Anion Gap 14 mmol/L (10-20); BUN (Urea Nitrogen) 34 mg/dL (8.4-25.7); Calc. Creatinine Clearance 66 mL/min (70-130); Calcium 8.2 mg/dL (7.8-10.44); Carbon Dioxide 31 mmol/L (23-31); Chloride 103 mmol/L (98-107); Glucose 102 mg/dL (83-110); Potassium 3.5 mmol/L (3.5-5.1); Sodium 144 mmol/L (136-145)
[2020-07-19] MEDS: Pantoprazole 40 MG GRANULES PACKET PER TUBE SCH (09:01)
[2020-07-19] MEDS: Carvedilol 6.25 MG TAB PER TUBE SCH (09:01)
[2020-07-19] MEDS: methylPREDNISolone Sod Succ 40 MG VIAL IVP SCH (09:06)
--- NOTE | 2020-07-19 14:11 | PRG ---
DATE OF SERVICE: 07/19/2020 SUBJECTIVE: Mr. Hernandez complains of dry mouth as well as a bit of chronic epigastric discomfort, which he says is not new primarily. He just desires ice chips. Discussions are ongoing between family and Palliative Care Team regarding whether he even wants to have a PEG tube or not. At this point, my understanding is that the family is leaning against it. He is breathing pretty well. INR is down to 1.3. OBJECTIVE: VITAL SIGNS: Temperature 97.6, blood pressure 121/69, 93% oxygen saturation on 5 L by trach collar, pulse is 86. GENERAL: No acute distress. LUNGS: Clear to auscultation bilaterally. HEART: Regular rate and rhythm. ABDOMEN: Soft, nontender, nondistended. Mild tenderness to palpation in the epigastrium. No guarding or rebound tenderness. EXTREMITIES: No peripheral edema. IMPRESSION: 1. History of laryngeal cancer, status post radiation and laryngectomy with tracheostomy. 2. 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 3. Atrial fibrillation, on anticoagulation. INR down to 1.3 today. RECOMMENDATION: The patient continues on Dobbhoff tube feeds for now. From a GI standpoint, I think the patient is stable enough to consider PEG tube placement if that is the final decision that is made, however, my understanding is that discussions are still ongoing between family and Palliative Care Services to whether this is even something that is desirable in his case. GI can continue to follow peripherally. Please give us a call and let us know if the decision is made to proceed with PEG tube placement, and we could get it scheduled. Job ID: [id number]
[2020-07-19 15:30] LABS: Vancomycin, Trough 9.4 ug/mL
--- NOTE | 2020-07-19 16:22 | PDOC.HOSPP ---
- Subjective Encounter Date: 07/19/20 Encounter Time: 09:00 Subjective: F/u: pneumonia Had a long discussion with the patient. Patient says he does not want a feeding tube. He says he wants to go home. I asked if he wanted to go home with hospice, but he refused to answer. I explained that he may get recurrent pneumonia if he continues to eat. He states he was eating ice cream and milk and water at home. I explained that he has a fistula and food will go into his lungs and cause recurrent pneumonia if he eats. I advised him to think about what he wants. Palliative care has visited patient and apparently he has decided home with hospice - Objective Vital Signs & Weight: Vital Signs (12 hours) Temp Pulse Resp BP BP Pulse Ox 07/19/20 09:01 121/69 07/19/20 08:00 93 L 07/19/20 07:36 97.6 F 86 17 115/70 93 L Weight Admit Weight 137 lb Weight 137 lb 8.002 oz I&O: 07/18/20 07/19/20 07/20/20 06:59 06:59 06:59 Intake Total 1410 360 Output Total 350 350 Balance 1060 10 Result Diagrams: 07/16/20 06:20 07/19/20 05:56 Hospitalist ROS - Review of Systems Constitutional: denies: fever, chills - Medication Medications: Active Medications Generic Name Dose Route Start Last Admin Trade Name Freq PRN Reason Stop Dose Admin Carvedilol 6.25 mg 07/17/20 09:00 07/19/20 09:01 Carvedilol 6.25 Mg Tab PER TUBE 6.25 mg DAILY MITUL Administration Cefepime HCl 1 gm/ Sodium 100 mls @ 200 mls/hr 07/15/20 12:00 07/19/20 13:53 Chloride IVPB 100 mls 1200,2359 MITUL Administration Levothyroxine Sodium 112 mcg 07/17/20 06:00 07/19/20 06:08 Levothyroxine Sodium 112 Mcg Tab PER TUBE 112 mcg 0600 MITUL Administration Levothyroxine Sodium 25 mcg 07/17/20 06:00 07/19/20 06:08 Levothyroxine Sodium 25 Mcg Tab PER TUBE 25 mcg 0600 MITUL Administration Lorazepam 1 mg 07/15/20 18:45 12/06/20 02:05 Lorazepam 2 Mg/Ml Vial SLOW IVP 1 mg Q6H PRN Administration Anxiety Methylprednisolone Sodium Succinate 40 mg 07/16/20 09:00 07/19/20 09:06 Methylprednisolone Sod Succ 40 Mg Vial IVP 40 mg DAILY MITUL Administration Pantoprazole Sodium 40 mg 07/17/20 09:00 07/19/20 09:01 Pantoprazole 40 Mg Granules Packet PER TUBE 40 mg DAILY MITUL Administration - Exam General Appearance: NAD, awake alert Eye: PERRL, anicteric sclera ENT: normocephalic atraumatic, no oropharyngeal lesions ENT - other findings: trach in place Neck: supple, symmetric, no JVD Heart: RRR, no murmur, no gallops, no rubs Respiratory: CTAB, no rales, no ronchi Respiratory - other findings: mild wheezing Gastrointestinal: soft, non-tender, non-distended, normal bowel sounds Extremities: no cyanosis, no clubbing, no edema Skin: normal turgor, no lesions, no rashes Hosp A/P - Plan Chest X ray: interstitial and ground glass opacity change This is 84 year old male with laryngeal cancer who presented with cough and hypoxemia, admitted for aspiration pneumonia Acute hypoxic respiratory failure possibly from aspiration pneumonia - continue IV cefepime day 4 .Repeat chest X ray 07/16 almost unchanged. COVID negative - will switch IV steroids to oral. 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 Will need long-term tube feeding due to high aspiration risk, patient does not want this . Therefore will continue to eat food with comfort Malnutrition - continue tube feeds per dietary recommendations. Will likely go home without tube feed since he doesn't want it Hypernatremia- resolved Hypokalemia- resolved Supratherapeutic INR - INR is 1.3, restart coumadin if patient isn't getting tube feeds Hypothyroidism - continue levothyroxine NASRIN - resolved Dispo: home with hospice maybe on
[2020-07-19] MEDS: Vancomycin 1.5 GRAM/300 ML BAG 1.5 GM in Premix Bag 1 BAG IVPB SCH (17:02)
[2020-07-19 17:56] LABS: Hemoglobin 11.2 g/dL (14.0-18.0); Mean Corpuscular HGB CONC 31.6 g/dL (32.0-36.0); Mean Corpuscular Hemoglobin 29.7 pg (27.0-31.0); Mean Platelet Volume 6.8 fL (7.4-10.4); Platelet Count 247 thou/uL (130-400); RBC Distribution Width 14.2 % (11.5-14.5); Red Blood Cell (RBC) Count 3.75 mill/uL (4.70-6.10); White Blood Cell (WBC) Count 9.1 thou/uL (4.8-10.8)
[2020-07-19] MEDS ORDERED: Scopolamine 1.5 mg/72 hour Patch TD PRN (19:07)
[2020-07-20] MEDS: Cefepime 1 GM in Sodium Chloride 0.9% 100 ML IVPB SCH ×3 (00:29→23:32)
[2020-07-20] MEDS: Levothyroxine Sodium 112 MCG TAB PER TUBE SCH (05:42)
[2020-07-20] MEDS: Levothyroxine Sodium 25 MCG TAB PER TUBE SCH (05:42)
[2020-07-20 06:32] LABS: Hemoglobin 11.5 g/dL (14.0-18.0); Mean Corpuscular HGB CONC 31.7 g/dL (32.0-36.0); Mean Corpuscular Hemoglobin 29.5 pg (27.0-31.0); Mean Corpuscular Volume 93.1 fL (78.0-98.0); Mean Platelet Volume 6.9 fL (7.4-10.4); Platelet Count 228 thou/uL (130-400); RBC Distribution Width 14.3 % (11.5-14.5); Red Blood Cell (RBC) Count 3.92 mill/uL (4.70-6.10); White Blood Cell (WBC) Count 12.4 thou/uL (4.8-10.8)
[2020-07-20 06:37] LABS: INR-International Normal Ratio 1.1; Prothrombin Time 14.8 sec (12.0-14.7)
[2020-07-20] MEDS: predniSONE 20 MG TAB PER TUBE SCH (09:19)
[2020-07-20] MEDS: Carvedilol 6.25 MG TAB PER TUBE SCH (09:19)
[2020-07-20] MEDS: Pantoprazole 40 MG GRANULES PACKET PER TUBE SCH (09:19)
[2020-07-20] MEDS ORDERED: methylPREDNISolone Sod Succ 40 MG VIAL IVP SCH (10:30)
--- NOTE | 2020-07-20 12:45 | PDOC.FMACP ---
Advance Care Planning - Problem (1) Laryngeal cancer Status: Acute (2) Malnutrition Status: Acute Code(s): E46 - UNSPECIFIED PROTEIN-CALORIE MALNUTRITION (3) Declining functional status Status: Acute Code(s): R53.81 - OTHER MALAISE (4) Community acquired pneumonia Status: Acute Code(s): J18.9 - PNEUMONIA, UNSPECIFIED ORGANISM (5) Chronic indwelling Kay catheter Status: Chronic Code(s): Z92.89 - PERSONAL HISTORY OF OTHER MEDICAL TREATMENT (6) History of lung cancer Status: Chronic Code(s): Z85.118 - PERSONAL HISTORY OF MALIGNANT NEOPLASM OF BRONCHUS AND LUNG - Note Participants: patient, family, palliative care Summary: Palliative Care has addressed Advanced Care Planning with both patient and his daughter. he diagnosis, prognosis and goals of care were discussed. Appropriate forms and documentation to accomplish the goals of care were discussed. All questions were answered. *Confirmed DNAR status, OOHDNAR completed *No PEG/feeding tube *Electing to transition to home setting with hospice to manage symptoms and forgo aggressive treatment *Daughter to assist in home setting *Daughter and patient to visit with both [facility] and [facility], and will select one after visiting with both. *Hopeful for transition to home setting 07/21/2020 Please also refer to Palliative Care notes in note section Time Spent (mins): 40
--- NOTE | 2020-07-20 13:45 | RAD ---
SINGLE VIEW OF THE CHEST: 07/20/20 COMPARISON: 07/16/20. HISTORY: Shortness of breath. FINDINGS: Single view of the chest shows an enlarged but stable cardiomediastinal silhouette with atherosclerot ic calcifications in the aorta. There is volume loss in the left thorax with increased interstitial l rebecca markings. This may represent scarring. Superimposed infiltrates in the left lung cannot be exclud ed. No right sided pulmonary infiltrates are seen. There is a Dobhoff tube with its tip in the stomac h. No pneumothorax is seen. IMPRESSION: Volume loss in the left thorax likely represents scarring. Superimposed infiltrates cannot be exclude d. POS: EAA
[2020-07-20] MEDS ORDERED: Warfarin Sodium 0.5 MG HALF.TAB PO SCH (17:00)
--- NOTE | 2020-07-20 17:25 | PDOC.HOSPP ---
- Subjective Encounter Date: 07/20/20 Encounter Time: 10:00 Subjective: F/u : pneumonia The patient feeling very short of breath today. He reports some chest congestion. He refused a CAT scan of his chest because according to the nurse the patient cannot tolerate laying flat. He is agreeable to going home with hospice. He states he is going to stop drinking water and eating milk - Objective Vital Signs & Weight: Vital Signs (12 hours) Temp Pulse Resp BP BP Pulse Ox 07/20/20 09:19 124/71 07/20/20 07:45 97.3 F L 69 18 124/71 94 L Weight Admit Weight 137 lb Weight 137 lb 8.002 oz I&O: 07/19/20 07/20/20 07/21/20 06:59 06:59 06:59 Intake Total 360 1670 360 Output Total 350 800 Balance 10 870 360 Result Diagrams: 07/20/20 06:10 07/19/20 05:56 Hospitalist ROS - Review of Systems Constitutional: denies: fever, chills - Medication Medications: Active Medications Generic Name Dose Route Start Last Admin Trade Name Freq PRN Reason Stop Dose Admin Carvedilol 6.25 mg 07/17/20 09:00 07/20/20 09:19 Carvedilol 6.25 Mg Tab PER TUBE 6.25 mg DAILY MITUL Administration Cefepime HCl 1 gm/ Sodium 100 mls @ 200 mls/hr 07/15/20 12:00 07/20/20 11:51 Chloride IVPB 100 mls 1200,2359 MITUL Administration Vancomycin HCl 1.5 gm/ Device 300 mls @ 200 mls/hr 07/19/20 16:00 07/19/20 17:02 IVPB 300 mls 1600 MITUL Administration Levothyroxine Sodium 112 mcg 07/17/20 06:00 07/20/20 05:42 Levothyroxine Sodium 112 Mcg Tab PER TUBE 112 mcg 0600 MITUL Administration Levothyroxine Sodium 25 mcg 07/17/20 06:00 07/20/20 05:42 Levothyroxine Sodium 25 Mcg Tab PER TUBE 25 mcg 0600 MITUL Administration Lorazepam 1 mg 07/15/20 18:45 07/17/20 02:05 Lorazepam 2 Mg/Ml Vial SLOW IVP 1 mg Q6H PRN Administration Anxiety Pantoprazole Sodium 40 mg 07/17/20 09:00 07/20/20 09:19 Pantoprazole 40 Mg Granules Packet PER TUBE 40 mg DAILY MITUL Administration Prednisone 40 mg 07/20/20 09:00 07/20/20 09:19 Prednisone 20 Mg Tab PER TUBE 40 mg DAILY MITUL Administration Scopolamine 1.5 mg 07/19/20 19:07 07/19/20 21:19 Scopolamine 1.5 Mg/72 Hour Patch TD 1.5 mg Q3D PRN Administration Secretions - Exam General Appearance: NAD, awake alert Eye: PERRL, anicteric sclera ENT: normocephalic atraumatic, no oropharyngeal lesions Neck: no JVD Heart: RRR, no murmur, no gallops, no rubs Respiratory: CTAB, no rales, no ronchi Respiratory - other findings: mild wheezing noted Gastrointestinal: soft, non-tender, non-distended, normal bowel sounds Extremities: no cyanosis, no clubbing, no edema Skin: normal turgor, no lesions, no rashes Hosp A/P - Plan Chest X ray: interstitial and ground glass opacity change This is 84 year old male with laryngeal cancer who presented with cough and hypoxemia, admitted for aspiration pneumonia Acute hypoxic respiratory failure possibly from aspiration pneumonia - continue IV cefepime day 5. .Repeat chest X ray 07/16 almost unchanged. COVID negative -White blood cell count is increasing to 12. Repeat chest x-ray 07/20 shows bi lateral infiltrates. Will add IV vancomycin. Will give 1 dose of IV prednisone 20 mg. Continue oral steroids. -Patient will likely go home with hospice tomorrow #Trachesophageal fistula #Laryngeal cancer s/p radiation and laryngectomy - s/p laryngectomy and received radiation twelve years ago - ENT consulted regarding fistula and they are unable to repair this and recommended free flap surgery in [place] . Patient was in need of a feeding tube, however he declined. He continues to eat liquids for comfort Malnutrition - continue tube feeds per dietary recommendations. Will likely go home without tube feed since he doesn't want it Hypernatremia- resolved Hypokalemia- resolved Supratherapeutic INR - resolved - restart coumadin 0.5 mg, check INR tomorrow Hypothyroidism - continue levothyroxine NASRIN - resolved Dispo: home with hospice maybe on
[2020-07-20] MEDS ORDERED: Acetaminophen 325 MG TAB PO PRN (17:45)
[2020-07-20] MEDS: Vancomycin 1.5 GRAM/300 ML BAG 1.5 GM in Premix Bag 1 BAG IVPB SCH (18:06)
[2020-07-20] MEDS: guaiFENesin ER 600 MG TAB PO SCH (20:18)
[2020-07-20] MEDS: Lorazepam 2 MG/ML VIAL SLOW IVP PRN (21:02)
[2020-07-20] MEDS ORDERED: Albuterol Sulfate 2.5 mg/3 ml Neb NEB PRN (22:15)
[2020-07-21] MEDS: Levothyroxine Sodium 25 MCG TAB PER TUBE SCH (06:12)
[2020-07-21] MEDS: Levothyroxine Sodium 112 MCG TAB PER TUBE SCH (06:12)
[2020-07-21 06:43] LABS: INR-International Normal Ratio 1.1; Prothrombin Time 14.5 sec (12.0-14.7)
[2020-07-21] MEDS: Carvedilol 6.25 MG TAB PER TUBE SCH (09:05)
[2020-07-21] MEDS: Pantoprazole 40 MG GRANULES PACKET PER TUBE SCH (09:05)
[2020-07-21] MEDS: guaiFENesin ER 600 MG TAB PO SCH (09:06)
[2020-07-21] MEDS: predniSONE 20 MG TAB PER TUBE SCH (09:06)
--- NOTE | 2020-07-21 11:11 | PDOC.PALPN ---
Palliative Progress Note - Subjective Resting, dobhoff to nare. Arousable, no complaints at present time - Objective Vital Signs: Vital Signs - Most Recent Temp Pulse Resp BP Pulse Ox 98.4 F 69 18 120/66 98 07/21/20 07:23 07/21/20 07:23 07/21/20 07:23 07/21/20 09:05 07/21/20 09:00 - Physical Exam Constitutional: emaciated, ill appearing HEENT: moist MMs, sclera anicteric Respiratory: wheezing present Deviation from normal: trach Gastrointestinal: soft, non-tender, positive bowel sounds Deviation from normal: dobhoff Genitourinary: carmona catheter Musculoskeletal: diffuse muscle atrophy Neurology: no focal deficits Skin: cap refill <2 seconds, fragile, friable Psychiatric: normal mood - Assessment (1) Laryngeal cancer Current Visit: Yes Status: Acute (2) Malnutrition Code(s): E46 - UNSPECIFIED PROTEIN-CALORIE MALNUTRITION Current Visit: Yes Status: Acute (3) Declining functional status Code(s): R53.81 - OTHER MALAISE Current Visit: Yes Status: Acute (4) Community acquired pneumonia Code(s): J18.9 - PNEUMONIA, UNSPECIFIED ORGANISM Current Visit: No Status: Acute (5) Chronic indwelling Carmona catheter Code(s): Z92.89 - PERSONAL HISTORY OF OTHER MEDICAL TREATMENT Current Visit: No Status: Chronic (6) History of lung cancer Code(s): Z85.118 - PERSONAL HISTORY OF MALIGNANT NEOPLASM OF BRONCHUS AND LUNG Current Visit: No Status: Chronic - Plan Plan: Reported shortness of breath, encouraged use of PRN Ativan, appears to mitigate symptom. Traditions attempting to evaluate patient for transition to home setting with hospice. Daughter to assume role of primary caregiver Patient hopeful to transition to home setting, comfort measures. Confirmed diet with risk/no peg. As Goal of Care is met palliative care will sign off. Please re consult our team if we can assist in the future with symptom management, revisiting goal of care, family support, coping. Please also refer to palliative care notes in note section. Thank you for this very appropriate consult. [35] minutes spent on this encounter with >50% of the time in counseling and coordination of care. - ROS Constitutional: weakness ENT: difficulty swallowing, nose congestion Respiratory: congestion, shortness of breath Cardiology: other (Denies chest pain or palpitations) Musculoskeletal: arthritis/arthralgias
[2020-07-21 11:21] LABS: Hemoglobin 11.4 g/dL (14.0-18.0); Mean Corpuscular HGB CONC 31.7 g/dL (32.0-36.0); Mean Corpuscular Hemoglobin 29.6 pg (27.0-31.0); Mean Corpuscular Volume 93.4 fL (78.0-98.0); Platelet Count 216 thou/uL (130-400); RBC Distribution Width 14.4 % (11.5-14.5); Red Blood Cell (RBC) Count 3.87 mill/uL (4.70-6.10)
[2020-07-21] MEDS: Cefepime 1 GM in Sodium Chloride 0.9% 100 ML IVPB SCH (11:21)
[2020-07-21 15:13] VITALS: BP 144/77; TEMP 98
--- NOTE | 2020-07-21 17:48 | PDOC.DS.DS ---
Provider - Provider Date of Admission: 07/14/20 21:35 Date of Discharge: 07/21/20 Admitting Provider: Danny Duran DO Consultations: Gastroentrology (Dr. Danny Saenz), ENT (Dr. Ramon Tam) Primary Care Physician: Ramon Tam MD Course - Hospital Course Hospital Course: Discharge Diagnoses: 1. 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 Malnutrition 5. Supratherapeutic INR 6. Hypothyroidism 7. NASRIN 8. Hypoklaemia Brief HPI: This is 84 year old male with laryngeal cancer s/p trach who presented with cough and hypoxemia. He had a chest Xray which showed worsening of multifocal interstitial opacities. He was started on IV antibiotics and admitted for further workup #Acute hypoxic respiratory failure possibly from aspiration pneumonia: #Tracheosophageal fistula s/p radiation and laryngectomy with trach #Severe malnutrition #Hypernatremia : the patient received 6 days of IV cefepime while in the hospital. On 07/20 his WBC increased to 12, so he was started on IV vancomycin. He did receive IV steroids which were eventually discontinued due to improvement in wheezing and he was switched to oral steroids. His oxygen was maintained at 5L trach collar while in the hospital. The patient was noted to have food leaking through his trach after he would eat, so ENT was consulted for trachesophageal fistula. They stated this was not repairable and if he wanted surgery, then he would need to go to [facility] for free-flap surgery. He received feedings through an NG tube temporarily. GI was consulted for PEG placement, however the patient refused a feeding tube long-term. Speech evaluated him and he was a high aspiration risk due to the fistula, but the patient was adamant on drinking water even though he understood this would cause recurrent aspiration. Palliative care was consulted and the patient eventually agreed to home with hospice. NG tube was removed at the time of discharge. He will be discharged with steroids for five more days and receive one more day of cefdinir to complete seven days and five more days of doxycycline for additional MSRA coverage. Supratherapeutic INR with history of atrial fibrillation: the patient presented with a supratherapeutic INR of 3.8. His coumadin was held due to anticipation of PEG tube placement and his INR came down to 1.1. This was restarted on discharge, but since he is going with hospice, consider discontinuing since they are unlikely to do serial INR checks. Pertinent Studies: Chest X ray 07/14: worsening of multifocal opacities interstitial in nature. Scarring or superimposed infiltrates. Abdomen X ray 07/15: NG tube Chest X ray 07/16: interstitial and groundglass opacity in the right base stable from 07/14 Chest X ray 07/20: volume loss left thorax Resuscitation Status: 07/19/20 16:21 Resuscitation Status Routine Resuscitation Status: DNAR: NO Resuscitation Discussed with: Pt. and his MPOA- Daughter - Labs Lab Results: 07/21/20 10:55 07/19/20 05:56 Abnormal Lab Results - Last 48 hrs 07/19/20 17:23: RBC 3.75 L, Hgb 11.2 L, Hct 35.3 L, MCHC 31.6 L, MPV 6.8 L 07/20/20 06:10: PT 14.8 H 07/20/20 06:10: WBC 12.4 H, RBC 3.92 L, Hgb 11.5 L, Hct 36.5 L, MCHC 31.7 L, MPV 6.9 L 07/21/20 10:55: WBC 15.0 H, RBC 3.87 L, Hgb 11.4 L, Hct 36.1 L, MCHC 31.7 L, MPV 7.0 L Microbiology - Entire Visit 07/17/20 15:14 Venous blood - Left Arm Blood Culture - Preliminary NO GROWTH AT 48 HOURS 07/17/20 15:14 Venous blood - Right Arm Blood Culture - Preliminary NO GROWTH AT 48 HOURS 07/14/20 18:35 Venous blood - Left Arm Blood Culture - Final Presumptiv Micrococcus/Kocuria 07/14/20 18:34 Venous blood - Right Arm Blood Culture - Final Coagulase Neg Staphylococcus 07/15/20 18:12 Urine carmona catheter Urine Culture - Final Gram Negative Asim Presumptive Lynsey albicans 07/14/20 18:44 Nasal swab Influenza Types A,B Direct EIA - Final - Physical Exam Vitals: Vital Signs (12 hours) Temp Pulse Resp BP BP Pulse Ox 07/21/20 15:12 98.0 F 77 20 144/77 H 98 07/21/20 09:05 120/66 07/21/20 09:00 98 07/21/20 07:23 98.4 F 69 18 120/66 98 Weight Admit Weight 137 lb Weight 137 lb 8.002 oz Physical Exam: The patient was seen and examined on the day of discharge. GEneral: patient is alert, awake, oriented times three. Appears malnourished ENT: trach in place CV:RRR, no murmurs, rubs, gallops Lungs: diminished breath sounds bilaterally Abdomen: +BS, soft, nontender, nondistended Extremities: no edema Problem - Discharge Plan Plan of Treatment: The patient will be discharged to hospice. Follow up with primary care doctor in a week. - Time spent with Patient (mins): 30 Plan - Discharge Medications Prescriptions: Doxycycline [Vibramycin] 100 mg PO Q12HR #10 cap Amoxicillin/Potassium Clav [Augmentin 875-125 Tablet] 1 each PO BID #2 tablet Prednisone [predniSONE 10 mg Dosepak] 40 mg PO DAILY #5 tab.ds.pk Scopolamine [Transderm Scop] 1.5 mg TD Q3D PRN #10 patch PRN Reason: Secretions Home Medications: Medication Instructions Recorded Confirmed Type Carvedilol [Coreg] 6.25 mg PO DAILY 10/04/17 07/15/20 History Levothyroxine Sodium [Synthroid] 137 mcg PO DAILY 10/04/17 07/15/20 History Warfarin Sodium [Coumadin] 1.5 mg PO DAILY@1700 10/04/17 07/15/20 History Pantoprazole [Protonix] 40 mg PO DAILY 07/15/20 07/15/20 History Amoxicillin/Potassium Clav 1 each PO BID #2 tablet 07/21/20 Rx [Augmentin 875-125 Tablet] Doxycycline [Vibramycin] 100 mg PO Q12HR #10 cap 07/21/20 Rx Prednisone [predniSONE 10 mg 40 mg PO DAILY #5 tab.ds.pk 07/21/20 Rx Dosepak] Scopolamine [Transderm Scop] 1.5 mg TD Q3D PRN #10 patch 07/21/20 Rx Allergies: No Known Allergies Allergy (Verified 07/15/20 00:50) - Discharge Instructions Activity:: Activity as Tolerated Additional Dietary Instructions:: Pureed diet with risk of aspiration - Follow up Plan Referrals: [facility] [Outside] [facility] [ Not on Staff] - Disposition: HOSPICE-HOME Quality - Care Measures CORE MEASURES:: N/A
== END 2020-07-21 15:24 | disposition hospice, home (50) | DRG 193 ==
LOC: ERS 18:05 → T4-B 21:35
PROVIDERS: ADMIT Family Medicine; ATTEND Internal Medicine
PROC: 8E0ZXY6 Isolation (ICD-10-PCS; principal; 2020-07-14)
PROC: 0B978ZZ Drainage of Left Main Bronchus, Via Natural or Artificial Opening Endoscopic (ICD-10-PCS; 2020-07-19)
PROC: 0DH68UZ Insertion of Feeding Device into Stomach, Via Natural or Artificial Opening Endoscopic (ICD-10-PCS; 2020-07-19)
DX: J18.9 Pneumonia, unspecified organism (principal); J96.01 Acute respiratory failure with hypoxia; J86.0 Pyothorax with fistula; E43 Unspecified severe protein-calorie malnutrition; J44.0 Chronic obstructive pulmonary disease with (acute) lower respiratory infection; J44.1 Chronic obstructive pulmonary disease with (acute) exacerbation; N17.9 Acute kidney failure, unspecified; E87.0 Hyperosmolality and hypernatremia; J69.0 Pneumonitis due to inhalation of food and vomit; E87.6 Hypokalemia; Z51.5 Encounter for palliative care; R53.81 Other malaise; Z66 Do not resuscitate; Z20.828 Contact with and (suspected) exposure to other viral communicable diseases; I48.91 Unspecified atrial fibrillation; E03.9 Hypothyroidism, unspecified; N18.2 Chronic kidney disease, stage 2 (mild); D63.1 Anemia in chronic kidney disease; R62.7 Adult failure to thrive; K59.00 Constipation, unspecified; I12.9 Hypertensive chronic kidney disease with stage 1 through stage 4 chronic kidney disease, or unspecified chronic kidney disease; C32.9 Malignant neoplasm of larynx, unspecified; K21.9 Gastro-esophageal reflux disease without esophagitis; R13.12 Dysphagia, oropharyngeal phase; Z86.718 Personal history of other venous thrombosis and embolism; Z85.118 Personal history of other malignant neoplasm of bronchus and lung; Z87.891 Personal history of nicotine dependence; Z93.0 Tracheostomy status; Z79.01 Long term (current) use of anticoagulants; Z79.890 Hormone replacement therapy; Z79.899 Other long term (current) drug therapy; Z68.20 Body mass index [BMI] 20.0-20.9, adult; Z90.2 Acquired absence of lung [part of]; Z92.3 Personal history of irradiation
CPT/HCPCS: 36415; 36600; 71045; 74018; 80048; 80053; 80202; 82550; 82553; 82805; 83036; 83605; 83880; 84484; 85025; 85027; 85610; 87040; 87086; 87149; 87804; 93005; 94640; 96365; 96366; 96368; 96375; J0456; J0692; J0696; J1940; J2060; J2920; J2930; J3370; J3490; J7512; J7611; U0002